=== PATIENT | female | born 1935 | race Caucasian/White ===

== ENCOUNTER 2016-10-19 04:12 | Inpatient (IN) | payer MEDICARE, OTHER ==
--- NOTE | ~2016-10-19 | CN ---
Consultation Report [facility] [address] [place]. [address] NAME: MARCOS PHILLIPS : 37 STATUS : ADM IN PAT#: [id number] AGE: 81 ADM/REG DATE : 10/19/16 MR#: [id number] REPORT SERV DATE: 10/20/16 DICTATED BY: ALLYSON NORMAN DATE: 10/20/16 REPORT STATUS : Draft TRANSCRIBED BY: MODL DATE: 10/20/16 NEPHROLOGY CONSULTATION DATE OF CONSULTATION: 10/20/2016 REQUESTING PHYSICIAN: Dr. Jaramillo. INDICATION FOR CONSULTATION: Acute on chronic kidney disease. HISTORY OF PRESENT ILLNESS: Ms. Phillips is a 81-year-old female seen for acute on chronic kidney disease following admission for shortness of breath and possible GI bleed. She is followed by Dr. Wright for stage IV CKD with baseline creatinine of 2.5 to 2.8. Her admission creatinine was 3.3 and has risen to 3.38. She is diuresing well. Breathing is improved. ALLERGIES: STADOL; SULFA; CODEINE; HYDROCODONE; AND WYGESIC. MEDICATIONS: Aspirin; Bumex; Coreg; vitamin D; ferrous sulfate; levothyroxine; and potassium. PAST MEDICAL HISTORY: 1. CKD stage 4, baseline creatinine 2.5 to 2.8. 2. Ischemic cardiomyopathy with an ejection fraction of 30%. 3. Coronary artery disease with remote PCI 2010. 4. Biventricular ICD. 5. Valvular heart disease with aortic insufficiency, mitral stenosis, tricuspid regurgitation. 6. Insulin-dependent diabetes mellitus. 7. Peripheral vascular disease. 8. Anemia. 9. Hypothyroidism. 10.Monoclonal gammopathy. 11.Osteoarthritis. PAST SURGICAL HISTORY: Hysterectomy; bilateral rotator cuff repair; neck surgery; cholecystectomy; Miky fundoplication; coronary artery bypass grafting; PCI; bilateral cataract implants; and ICD. SOCIAL HISTORY: The patient is . Lives with . No tobacco, alcohol, or illicit drug use. She has 3 children. FAMILY HISTORY: Both parents of myocardial infarction. Five sisters with heart attacks. No history of renal disease. Consultation Report [facility] [address] [place]. [address] NAME: MARCOS PHILLIPS : 37 STATUS : ADM IN PAT#: [id number] AGE: 81 ADM/REG DATE : 10/19/16 MR#: [id number] REPORT SERV DATE: 10/20/16 DICTATED BY: ALLYSON NORMAN DATE: 10/20/16 REPORT STATUS : Draft TRANSCRIBED BY: SEBASTIAN DATE: 10/20/16 REVIEW OF SYSTEMS: HEENT: No change in visual acuity. No epistaxis. No otic infection. No pharyngitis. PULMONARY: Noted shortness of breath. Cough is nonproductive. No hemoptysis. CARDIAC: Denies chest pain. No dizziness. GI: Some loose stools. Some intermittent nausea but no vomiting. MUSCULOSKELETAL: Back pain. INTEGUMENT: No rash. No itching. NEUROLOGIC: No lateralizing weakness or seizure activity. Remainder of 12-point review of systems is negative. PHYSICAL EXAMINATION: GENERAL: A pleasant white female, appropriately responsive. VITAL SIGNS: Blood pressure 99/54, temperature 97.8, respiratory rate 20, and pulse 75. HEENT: Eyes, no scleral icterus. Pupils equal and reactive to light. Extraocular movement intact. Nares patent. No lesions. Throat, no injection. Mucous membranes moist. NECK: No thyromegaly, masses, or bruits. CHEST/LUNGS: Late crackles posteriorly. No wheezing. CARDIAC: Regular rate and rhythm, a 1/6 systolic ejection murmur. No gallop. No rub. ABDOMEN: Supple. Normoactive bowel sounds. Nontender. No hepatosplenomegaly. BREASTS: Not performed. PELVIC: Not performed. RECTAL: Not performed. EXTREMITIES: No edema. No calf tenderness. DERMIS: No rash. No skin lesions. NEUROLOGIC: No lateralizing weakness. Cranial nerves intact. MUSCULOSKELETAL: No deformity. IMPRESSION: 1. Acute on chronic kidney disease, likely prerenal. No nephrotoxic exposure and currently no documentation of significant hypotension. 2. Ischemic cardiomyopathy EF 30%. 3. GI bleed. 4. Acute delirium resolving. 5. Pneumonia. 6. Sbx-ST-jprfqbbhr ME. 7. Osteoarthritis. 8. Monoclonal gammopathy. 9. Hypothyroidism. 10.Peripheral vascular disease. 11.Insulin-dependent diabetes mellitus. 12.CAD with remote coronary artery bypass grafting and PCI. 13.Valvular heart disease with mitral stenosis, aortic insufficiency, and tricuspid regurgitation. 14.Peripheral vascular disease. Consultation Report [facility] [address] [place]. [address] NAME: MARCOS PHILLIPS : 37 STATUS : ADM IN PAT#: [id number] AGE: 81 ADM/REG DATE : 10/19/16 MR#: [id number] REPORT SERV DATE: 10/20/16 DICTATED BY: ALLYSON NORMAN DATE: 10/20/16 REPORT STATUS : Draft TRANSCRIBED BY: SEBASTIAN DATE: 10/20/16 PLAN: 1. Labs. 2. Concur with current medications. 3. We will monitor. 4. Dialysis. CG/MINERVAL Allyson Norman M.D. / [id number] CC: Gillian Jaramillo MD
--- NOTE | ~2016-10-19 | IDS ---
Interim Discharge Summary [facility] [address] [place]. [address] NAME: MARCOS ESPINOZA : 37 STATUS : ADM IN [facility]#: [id number] AGE: 81 ADM/REG DATE : 10/19/16 MR#: [id number] REPORT SERV DATE: 10/24/16 DICTATED BY: TARA SNIDER IV DATE: 10/24/16 REPORT STATUS : Draft TRANSCRIBED BY: MODKevin DATE: 10/24/16 ADMISSION DATE: 10/19/2016 DISCHARGE DATE: Date of the transfer to the [place] ICU is 10/19/2016. Date of transfer to the floor is 10/24/2016. ADMITTING DIAGNOSES: 1. Hypoxemic respiratory failure requiring BiPAP. 2. Gastrointestinal bleed. 3. Possible community-acquired pneumonia. 4. Acute on chronic heart failure. 5. Ischemic cardiomyopathy, ejection fraction of 30%. 6. Coronary artery disease with a minimal bump in the troponin. 7. Acute on chronic kidney disease to baseline. 8. Wheezing markedly improved with bronchodilator medications and steroids. 9. Hypertension. 10.Diabetes mellitus with hyperglycemia with adjustments of her blood sugars. 11.Clinical obstructive sleep apnea for which she should obtain an outpatient sleep evaluation. 12.Chronic pain syndrome with current administration of low-dose narcotics. 13.Hypothyroidism, on replacement therapy. CONSULTANTS: 1. Gastroenterology, Dr. Urias, who continues to follow the patient. 2. Nephrology, who continues to follow the patient. 3. [facility], who continues to follow the patient. PROCEDURES: The patient had an abdominal CT scan on 10/20/2016 demonstrating some patchy right mid and right lower lobe infiltrates, which was interpreted as demonstrating pneumonia. There is no significant acute GI pathology, then the patient underwent mesenteric ultrasound on 10/22/2016 demonstrating no significant stenoses of the major mesenteric arteries. CURRENT MEDICATIONS: The patient is on Aldactone 25 mg daily, aspirin 325 mg daily, Brovana unit dose twice a day, Coreg 6.25 mg twice a day, prednisone 40 mg daily, DuoNeb q.4h while awake and q.4h as needed, iron 300 mg daily, Levemir twice a day, Lipitor 40 mg daily, level 2 insulin sliding scale, Protonix 40 mg IV twice a day, Pulmicort 1 mg twice a day, Reglan 5 mg q.6h, Rocephin 2 g daily, Synthroid 100 mcg daily, and vitamin D. HOSPITAL COURSE: The patient was admitted and transferred from [facility] on 10/19/2016 with hypoxemic respiratory failure. The patient presented there with two weeks of increasing shortness of breath with some symptoms of an upper respiratory infection. She was empirically treated for community-acquired pneumonia with ceftriaxone and azithromycin. She Interim Discharge Summary [facility] [id number] [place]. [address] NAME: MARCOS ESPINOZA : 37 STATUS : ADM IN PAT#: [id number] AGE: 81 ADM/REG DATE : 10/19/16 MR#: [id number] REPORT SERV DATE: 10/24/16 DICTATED BY: TARA SNIDER IV DATE: 10/24/16 REPORT STATUS : Draft TRANSCRIBED BY: SEBASTIAN DATE: 10/24/16 required intermittent BiPAP for 48 hours. She had a markedly elevated BNP for which Cardiology was consulted. Because she had a minimal bump in her troponin, she was started on a heparin drip. Soon after this, she had evidence for GI bleeding for which the heparin was discontinued. The patient was placed on Protonix drip and GI was consulted. She received 1 unit of packed red blood cells on 10/21/2016 with serial hemoglobins stable since then. She did have significant wheezing for which she transiently received Solu-Medrol; however, this was discontinued because of her elevated blood sugars. Prednisone was reordered yesterday with a dramatic improvement of her wheezing. She remains on bronchodilator medications. She transiently developed hypotension for which her cardiac medications were discontinued and now are being added back. She has had adjustments of her insulin coverage for her diabetes. She complains of chronic pain syndrome, and states she had been on Ultram despite the fact this is not on her home med list. She has been placed on low-dose oral narcotics to be taken as needed. She is currently on room air with a possible plan for EGD tomorrow. Nephrology was consulted because of a rise in her baseline creatinine, which is now back to her baseline in the 3 range. It was felt that she was stable for transfer to the floor. We will ask Hospitalist Service to assume primary care with the consultants to continue to follow. TREMAINE/MINERVAL Tara Snider IV, M.D. / [id number] CC: MD Froylan Begum M.D.
--- NOTE | ~2016-10-19 | EGD ---
EGD REPORT [facility] [address] [place] [address] NAME: MARCOS PHILLIPS : 37 STATUS : ADM IN PAT#: [id number] AGE: 81 ADM/REG DATE : 10/19/16 MR#: [id number] REPORT SERV DATE: 10/25/16 DICTATED BY: JONAS [place] DATE: 10/25/16 REPORT STATUS : Draft [facility]ANSCR[facility]ED [facility]: [facility] DATE: 10/25/16 End[facility] Center Patient Name: Marcos Phillips Date of : 1935 Attending MD: JONAS JACK[place] MD Procedure Date No Time: 10/25/2016 Procedure: Upper GI endoscopy Indications: Acute post hemorrhagic anemia, Gastro-esophageal reflux disease, Heme positive stool, Melena Referring MD: MELANIE CHENG Medicines: Propofol per Anesthesia Complications: No immediate complications. Procedure: Pre-Anesthesia Assessment: - ASA Grade Assessment: IV - A patient with severe systemic disease that is a constant threat to life. After obtaining informed consent, the endoscope was passed under direct vision. Throughout the procedure, the patient's blood pressure, pulse, and oxygen saturations were monitored continuously. The GIF [id number] was introduced through the mouth, and advanced to the third part of duodenum. The upper GI endoscopy was accomplished without difficulty. The patient tolerated the procedure well. Findings: Non-severe esophagitis with no bleeding was found in the entire esophagus. A small non-bleeding Emily-Tobar tear with no stigmata of recent bleeding was found. Evidence of a Miky fundoplication was found at the gastroesophageal junction. The wrap appeared intact. This was traversed. Diffuse moderate inflammation characterized by congestion (edema), erosions and erythema was found in the entire examined stomach. Biopsies were taken with a cold forceps for Helicobacter pylori testing. One non-bleeding cratered gastric ulcer with no stigmata of bleeding was found in the cardia. The lesion was 11 mm in largest dimension. Localized mild inflammation characterized by congestion (edema) and erythema was found in the duodenal bulb. The 2nd part of the duodenum and 3rd part of the duodenum were normal. Impression: - Non-severe reflux esophagitis. - Emily-Tobar tear. - A Miky fundoplication was found. The wrap appears intact. - Gastritis. Biopsied. EGD REPORT [address] [address] NAME: MARCOS PHILLIPS : 37 STATUS : ADM IN [facility]#: [id number] AGE: 81 ADM/REG DATE : 10/19/16 MR#: [id number] REPORT SERV DATE: 10/25/16 DICTATED BY: JONAS JACK[place] DATE: 10/25/16 REPORT STATUS : Draft TRANSCRIBED BY: [employer] DATE: 10/25/16 - Gastric ulcer with clean base. - Duodenitis. - Normal 2nd part of the duodenum and 3rd part of the duodenum. Recommendation: - Check hemoglobin q 6 hours for two days. - Continue present medications. - Use sucralfate suspension 1 gram PO QID. - take before each meal and at bedtime - Repeat the upper endoscopy in 3 months to check healing. - Return to previous diet. - Return patient to [facility] for ongoing care. Procedure Code(s): --- Professional --- 90929, Esophagogastroduodenoscopy, flexible, transoral; with biopsy, single or multiple Diagnosis Code(s): --- Professional --- K21.0, Gastro-esophageal reflux disease with esophagitis K22.6, Gastro-esophageal laceration-hemorrhage syndrome Z98.89, Other specified postprocedural states K29.70, Gastritis, unspecified, without bleeding K25.9, Gastric ulcer, unspecified as acute or chronic, without hemorrhage or perforation K29.80, Duodenitis without bleeding D62, Acute posthemorrhagic anemia R19.5, Other fecal abnormalities K92.1, Melena CPT copyright 2013 [employer]. All rights reserved. The codes documented in this report are preliminary and upon picker machine operator review may be revised to meet current compliance requirements. Jonas Jackson MD JONAS JACKSON MD 10/25/2016 1:02 PM This report has been signed electronically. Number of Addenda: 0 Note Initiated On: 10/25/2016 12:20 PM Scope Withdrawal Time 0 hours 0 minutes 0 seconds [address] [place] [address]
--- NOTE | ~2016-10-19 | DS ---
Discharge Summary [facility] [address] [place]. [address] NAME: MARCOS ESPINOZA : 37 STATUS : DIS IN PAT#: [id number] AGE: 81 ADM/REG DATE : 10/19/16 MR#: [id number] REPORT SERV DATE: 10/30/16 DICTATED BY: SUNI CONDE DATE: 10/29/16 REPORT STATUS : Draft TRANSCRIBED BY: MODL DATE: 10/29/16 ADMISSION DATE: 10/19/2016 DISCHARGE DATE: 10/29/2016 REASON FOR ADMISSION: Acute on chronic systolic heart failure exacerbation and concern for pneumonia. HISTORY OF PRESENT ILLNESS: Please refer to Dr. Wheatley's H and P dated 10/19/2016. In brief, the patient was admitted to the [facility] Service for acute on chronic systolic heart failure exacerbation. HOSPITAL COURSE: From admission to 10/24/2016, please refer to Dr. Janusz Snider's interim summary. In brief, the patient was transferred [facility] ICU on 10/19/2016 and then transferred to the floor on 10/24/2016. She was diagnosed with acute hypoxic respiratory failure, requiring BiPAP, then developing a non-ST elevation IL, started on a heparin drip, and then concerning for a GI bleed after heparin drip was initiated. She also developed acute on chronic kidney disease and significant wheezing. She was stabilized. [facility] had been following the patient for her non-ST elevation IL and Nephrology followed the patient throughout the hospitalization. Dr. Urias had performed an EGD in the intensive care unit, which showed nonsevere reflux esophagitis, a Emily-Tobar tear, a Miky fundoplication was found, and gastritis along with a gastric ulcer with clean base and duodenitis. She was transfused one unit of blood after she was stabilized, she was then transferred to the floor on 10/24/2016. I assumed care of this patient on 10/25/[address] Snider. At which point, we were monitoring her creatinine and it had been slowly rising and finally stabilized at about 2.96. Nephrology had signed off. She was weaned off oxygen. She was ambulating, requesting to go home. Repeat chest x-ray showed no acute findings on the day prior to discharge. Her hemoglobin had been stable. She reached maximal hospitalization and will be discharged home in a stable condition. DISCHARGE DIAGNOSES: 1. Acute hypoxic respiratory failure, requiring BiPAP, now resolved; acute on chronic systolic heart failure exacerbation, now resolved; gastrointestinal bleeding was likely secondary to heparin drip, now resolved; duodenitis, Emily-Tobar tear, reflux esophagitis; possible community-acquired pneumonia; ischemic cardiomyopathy with an ejection fraction of 30%; coronary artery disease, non-ST elevation myocardial infarction; acute on chronic kidney disease, stage IV, now at baseline; diabetes type 2; clinical obstructive sleep apnea; chronic pain syndrome, dependent on narcotics; hypothyroidism. CONSULTANTS: Esau Urias M.D. of GI Medicine, Nephrology, and [facility]. PROCEDURES: CT scan of the abdomen, EGD, mesenteric ultrasound. DISCHARGE MEDICATIONS: Include aspirin 81 mg once a day, Lipitor 40 mg at bedtime, Bumex 2 mg twice a day, Coreg 12.5 mg twice a day, vitamin D 2000 units, iron sulfate 325 mg daily, levothyroxine 100 mcg daily, Protonix 40 mg once a day, Aldactone 25 mg daily, nitroglycerin Discharge Summary [address] [address] NAME: MARCOS ESPINOZA : 37 STATUS : DIS IN PAT#: [id number] AGE: 81 ADM/REG DATE : 10/19/16 MR#: [id number] REPORT SERV DATE: 10/30/16 DICTATED BY: SUNI CONDE DATE: 10/29/16 REPORT STATUS : Draft TRANSCRIBED BY: MODL DATE: 10/29/16 p.r.n., NovoLog 70/30 mix 35 units in the morning and 25 in the evening. The patient will have home health arranged and she will follow up with Nephrology and Dr. Urias. This is Dr. Suni Conde spending over 30 minutes discharge planning and coordination of care on this patient. MARY/SEBASTIAN Suni Conde MD / [id number] CC: MD Froylan Begum M.D. [facility] Esau Urias M.D.
--- NOTE | ~2016-10-19 | CN ---
Consultation Report [address] [place]. [address] NAME: MARCOS PHILLIPS : 37 STATUS : ADM IN PAT#: [id number] AGE: 81 ADM/REG DATE : 10/19/16 MR#: [id number] REPORT SERV DATE: 10/19/16 DICTATED BY: MAHIN THOMAS DATE: 10/19/16 REPORT STATUS : Draft TRANSCRIBED BY: MODKevin DATE: 10/19/16 CARDIOLOGY CONSULTATION DATE OF CONSULTATION: [facility] PHYSICIAN: Deacon Diez M.D. REASON FOR CONSULTATION: Dyspnea, elevated BNP, and chest pain with elevated troponin. HISTORY OF PRESENT ILLNESS: Ms. Phillips is a 81-year-old woman with history of coronary artery disease with chronic systolic dysfunction and chronic heart failure as well as chronic kidney disease. She presented to the hospital with increasing dyspnea and chest discomfort. She had a recent jaw infection and upper respiratory tract symptoms. She has had dyspnea for two weeks with fever. She went to the emergency room at [facility] and due to them having no ICU beds, was admitted with question possible pneumonia with left lower lobe consolidation. She does report some chest discomfort. Has some mild increased swelling. She has had no real exertional-type chest pain. REVIEW OF SYSTEMS: The review of systems is as per the history of present illness. All other systems are negative. PAST MEDICAL HISTORY: 1. Coronary artery disease with previous bypass surgery and percutaneous intervention in March of 2011. 2. History of congestive heart failure. 3. Ischemic cardiomyopathy, LVEF 30% on echocardiogram 12/2015. 4. Diabetes. 5. Left bundle-branch block. 6. Chronic kidney disease. 7. History of LINER ROLL CHANGER defibrillator. 8. Anemia. FAMILY HISTORY: Noncontributory. SOCIAL HISTORY: The patient is . She has three children. No tobacco or alcohol. ALLERGIES: PROPOXYPHENE, STADOL, SULFA, CODEINE, HYDROCODONE. HOME MEDICINES: 1. Aspirin 81 daily. 2. Bumex 1 daily for two in the morning and one in the evening. 3. Carvedilol 12.5 p.o. b.i.d. 4. Vitamin D. Consultation Report [address] [place]. [address] NAME: MARCOS PHILLIPS : 37 STATUS : ADM IN PAT#: [id number] AGE: 81 ADM/REG DATE : 10/19/16 MR#: [id number] REPORT SERV DATE: 10/19/16 DICTATED BY: MAHIN THOMAS DATE: 10/19/16 REPORT STATUS : Draft TRANSCRIBED BY: SEBASTIAN DATE: 10/19/16 5. Ferrous sulfate. 6. Levothyroxine. 7. Potassium. PHYSICAL EXAMINATION: VITAL SIGNS: Heart rate 60, blood pressure 153/69. GENERAL: The patient is a pleasant, white female, BiPAP in place with mild expiratory effort. HEENT: Conjunctivae are anicteric, no xanthelasma, lips without cyanosis. NECK: Supple. Jugular venous pressure is mildly elevated. CARDIOVASCULAR: Regular rate and rhythm. Normal S1, S2. A 1 to 2/6 systolic murmur. LUNGS: Decreased breath sounds with some rhonchi and crackles, left greater than right. ABDOMEN: Soft, nontender, nondistended, with normal bowel sounds. No hepatomegaly. EXTREMITIES: Trace to mild edema. NEURO/PSYCH: Alert and oriented to person, place and time. No obvious neurologic deficits. Mood and affect normal. DATA: EKG in the emergency room shows sinus rhythm with no acute ST-segment changes. Chest x-ray shows some pulmonary edema with left lower lobe consolidation. Creatinine is 3.3. BNP level is 1357. Troponin 0.6. Procalcitonin 0.6. Albumin 2.6. IMPRESSION: 1. Acute on chronic systolic heart failure. 2. Possible pneumonia. 3. Chest pain, question angina. 4. History of coronary artery disease with previous CABG and PCI in March 2011. 5. Diabetes. 6. Ischemic cardiomyopathy with previous ejection fraction of 30% in December of 2015. 7. History of left bundle-branch block. 8. Chronic kidney disease stage 4. RECOMMENDATIONS: Ms. Phillips presents with dyspnea which is likely multifactorial, may be related to LV dysfunction, pneumonia, or worsening renal failure. I agree with diuresis. Her troponins were elevated. She has no acute changes on her EKG. We will follow some serial enzymes, but I suspect mostly this is demand related rather than acute coronary syndrome. Thank you for this consultation. We will follow through her on next day or two of her clinical course with further recommendations. MAGUI/SEBASTIAN Mahin Consultation Report [facility] [address] [place]. [address] NAME: MARCOS PHILLIPS : 37 STATUS : ADM IN PAT#: [id number] AGE: 81 ADM/REG DATE : 10/19/16 MR#: [id number] REPORT SERV DATE: 10/19/16 DICTATED BY: MAHIN THOMAS DATE: 10/19/16 REPORT STATUS : Draft TRANSCRIBED BY: MODL DATE: 10/19/16 Juan Thomas, Ph.D, F.A.C.C. / [id number] CC: Gillian Jaramillo MD
[~2016-10-19 04:12] MED LIST: *UNABLE3; ALTACE10 MG PO; APRES25 PO; ASA5GR PO; ASAB PO; BUM1 PO; BUM2 PO; BUMEX PO; BYETTA; BYETTA10 SC; CEFT2 PO; CO Q-10100 MG PO; COREG12 PO; COREG6 PO; DEMA100 PO; DSS PO; FERROUS SULF325 M1 PO; FISH OIL300 MG PO; FISH-EPA1000 MG PO; FLONASE NAS; FLORASTOR250 MG PO; GLUCPH PO; HUMALOG SC; HUMALOGMIX; HUMALOGMIX SC; HUMALOGMIX SQ; HUMAMIXPEN SC; IRON325 MG PO; KDUR20 PO; KLOR-CON M2020 MEQ PO; KLOR-CON20 MEQ PO; L40 PO; L80 PO; LEVAQUIN5T PO; LEVEMFLXPN SC; LEVOTHYROXIN100 MCG PO; LEVOTHYROXIN75 MCG PO; MAGNESIUM PO; MAGOX4 PO; MEGARED PO; MELA3 PO; MIRAPEX5 PO; MSIMMR15; MULTIPLE VIT PO; NASONEX NAS; NITROII20C TOP; NITROII30C TOP; NORV5 PO; NOVOLOG SQ; NOVOLOGMIX SC; NOVOPENMIX SC; OXYCOD PO; PEP20 PO; PERCOCET1 TA2 PO; PLAVIX PO; PRAVAC PO; PRILO PO; PRILOSEC40 MG PO; PROTONIX PO; REG PO; REGLAN PO; SPIRO50 PO; SUCR PO; SYN.025B PO; SYN.05 PO; SYN.15 PO; SYN075 PO; SYN1 PO; TRILIPIX135 MG PO; ULTRAM50 PO; VITAMIN D1000 UNI1 PO; VITAMIN D2000 UNIT PO; VITAMIN D31000 UNIT PO; VOLTAREN1 % TOP; Z5 OR; Z5 PO; ZOCOR10 PO
[2016-10-19 05:32] LABS: BE (BASE EXCESS) -6.3 MEQ/L (0 +/- 2.5); CARBOXYHEMOGLOBIN 0.3 % (0-3); HCO3 (ACTUAL BICARBONATE) 18.4 MEQ/L (23-27); HEMOBLOGIN CONTENT 11.2 G/DL (12-16); INSTRUMENT SERIAL # 35151; METHEMOGLOBIN 0.6 % (0-3); O2 CONTENT 15.4 VOL% (18-24); OPERATOR ID 13861; PCO2 (CO2 TENSION) 34 MMHG (35-45); PO2 (O2 TENSION) 109 MMHG (79-93); SAMPLE Arterial; pH 7.35 (7.37-7.43)
[2016-10-19 06:16] LABS: HEMATOCRIT 30.5 % (36.0-48.0); HEMOGLOBIN 10.1 g/dL (12.0-16.0); MEAN CORPUS HGB CONC 33.1 g/dL (32.0-36.0); MEAN CORPUSCULAR VOLUME 99.7 fL (80-100); MEAN PLATELET VOLUME 9.3 fL (9.2-13.0); PLATELET COUNT 177 10/3/uL (150-400); RBC DISTRIBUTION WIDTH 13.6 % (12.0-16.0); RED CELL COUNT 3.06 10/6/uL (4.0-5.6); WHITE BLOOD CELLS 6.4 10/3/uL (4.5-10.5)
[2016-10-19 06:22] LABS: MANUAL DIFF YES %
[2016-10-19 06:41] LABS: A/G RATIO 0.5 (0.7-1.9); ALBUMIN 2.6 G/DL (3.5-5.0); ALKALINE PHOSPHATASE 90 U/L (45-117); BUN (BLOOD UREA NITROGEN) 44 MG/DL (6-23); CALCIUM, SERUM 8.2 MG/DL (8.5-10.4); CHLORIDE, SERUM 100 MMOL/L (96-112); CO2 (CARBON DIOXIDE) 20 MMOL/L (24-34); FREE T4 1.25 NG/DL (0.76-1.46); GFR AFRICAN AMERICAN 15 ML/MIN (>=60); GFR NON AFRICAN AMERICAN 13 ML/MIN (>=60); GLOBULIN 5.2 G/DL (2.5-4.1); POTASSIUM, SERUM 3.4 MMOL/L (3.5-5.3); SGOT(AST) 18 U/L (5-40); SGPT(ALT) 11 U/L (5-65); SODIUM, SERUM 135 MMOL/L (135-148); TOTAL BILIRUBIN 0.4 MG/DL (0-1.2); TOTAL PROTEIN 7.8 G/DL (6.0-8.5); ULTRASENSITIVE TSH 0.933 MCIU/ML (0.358-3.740)
[2016-10-19 06:43] LABS: GLUCOSE, SERUM 403 MG/DL (60-99); TROPONIN I 0.62 NG/ML (<0.05)
[2016-10-19 07:10] LABS: BAND NEUTROPHILS 3 %; LYMPHOCYTES 10 %; LYMPHOCYTES ABSOLUTE (CALC) 0.64 10/3/uL (0.67-4.30); MONOCYTES 1 %; MONOCYTES ABSOLUTE (CALC) 0.06 10/3/uL (0.21-1.20); PLATELET ESTIMATE ADQ (ADEQUATE); SEGMENTED NEUTROPHIL (0) 86 %; TOTAL NUCLEATED CELLS 100
[2016-10-19 07:11] LABS: RBC MORPHOLOGY NORM (NORMAL)
[2016-10-19 07:21] LABS: PROCALCITONIN 0.66 ng/mL (<0.5)
[2016-10-19 07:52] LABS: INFLUENZA A SCREEN NEGATIVE (NEGATIVE); INFLUENZA B SCREEN NEGATIVE (NEGATIVE)
[2016-10-19 08:09] LABS: GLYCOHEMOGLOBIN (HbA1c) 7.5 % (4.7-6.1)
[2016-10-19 08:30] LABS: B NATRIURETIC PEPTIDE (BNP) 1357.5 PG/ML (< 100.0)
[2016-10-19 12:35] LABS: CK-MB 2.9 NG/ML; CPK 118 U/L (0-200)
[2016-10-19 12:36] LABS: TROPONIN I 0.49 NG/ML (<0.05)
[2016-10-19 12:38] LABS: CK-MB 2.1 NG/ML; CPK 128 U/L (0-200)
[2016-10-19] MEDS ORDERED: NOVOLOGMIX SC ×2 (13:58)
[2016-10-19] MEDS ORDERED: NITROII30C TOP (13:58)
[2016-10-19 14:24] LABS: ASCORBIC ACID (UR NOT ORDER) NEG (NEG); BILIRUBIN, URINE NEGATIVE (NEG); KETONE, URINE NEGATIVE (NEG); LEUKOCYTE ESTERASE(NOT OR NEG (NEG); WBC (NOT ORDERED) (RFLEX) 6 (0-5)
[2016-10-19 17:20] LABS: CPK 107 U/L (0-200)
[2016-10-19 17:21] LABS: TROPONIN I 0.46 NG/ML (<0.05)
[2016-10-20 00:25] LABS: CALCIUM, SERUM 7.9 MG/DL (8.5-10.4); CHLORIDE, SERUM 102 MMOL/L (96-112); CO2 (CARBON DIOXIDE) 23 MMOL/L (24-34); CREATININE 3.38 MG/DL (0.55-1.02); GFR AFRICAN AMERICAN 14 ML/MIN (>=60); GFR NON AFRICAN AMERICAN 12 ML/MIN (>=60); GLUCOSE, SERUM 332 MG/DL (60-99); PHOSPHORUS, SERUM 3.4 MG/DL (2.5-4.5); POTASSIUM, SERUM 3.5 MMOL/L (3.5-5.3); SODIUM, SERUM 138 MMOL/L (135-148)
[2016-10-20 00:31] LABS: BUN (BLOOD UREA NITROGEN) 70 MG/DL (6-23); CK-MB 3.6 NG/ML; CPK 80 U/L (0-200); TROPONIN I 0.47 NG/ML (<0.05)
[2016-10-20 08:07] LABS: BASOPHILS 0.1 %; BASOPHILS ABSOLUTE 0.01 10/3/uL (0.0-0.16); EOSINOPHILS 0 %; HEMOGLOBIN 8.4 g/dL (12.0-16.0); IMMATURE GRANULOCYTES 0.6 %; IMMATURE GRANULOCYTES ABSOLUTE 0.06 10/3/uL (0.0-0.11); LYMPHOCYTES 11.2 %; LYMPHOCYTES ABSOLUTE 1.11 10/3/uL (0.67-4.30); MEAN CORPUSCULAR HEMOGLOB 33.9 pg (26.0-34.0); MEAN CORPUSCULAR VOLUME 99.6 fL (80-100); MEAN PLATELET VOLUME 9.6 fL (9.2-13.0); MONOCYTES 5.2 %; MONOCYTES ABSOLUTE 0.51 10/3/uL (0.21-1.20); NEUTROPHILS 82.9 %; NEUTROPHILS ABSOLUTE 8.21 10/3/uL (2.02-8.40); PLATELET COUNT 189 10/3/uL (150-400); RBC DISTRIBUTION WIDTH 13.3 % (12.0-16.0); RED CELL COUNT 2.48 10/6/uL (4.0-5.6)
[2016-10-20 08:11] LABS: HEMATOCRIT 24.7 % (36.0-48.0); MANUAL DIFF NO %; WHITE BLOOD CELLS 9.9 10/3/uL (4.5-10.5)
[2016-10-20 08:25] LABS: CALCIUM, SERUM 7.7 MG/DL (8.5-10.4); CHLORIDE, SERUM 106 MMOL/L (96-112); CO2 (CARBON DIOXIDE) 20 MMOL/L (24-34); CPK 67 U/L (0-200); GFR AFRICAN AMERICAN 15 ML/MIN (>=60); GFR NON AFRICAN AMERICAN 13 ML/MIN (>=60); PHOSPHORUS, SERUM 3.7 MG/DL (2.5-4.5); SODIUM, SERUM 138 MMOL/L (135-148)
[2016-10-20 08:27] LABS: BUN (BLOOD UREA NITROGEN) 90 MG/DL (6-23); CK-MB 3.8 NG/ML; GLUCOSE, SERUM 398 MG/DL (60-99); POTASSIUM, SERUM 4.5 MMOL/L (3.5-5.3); TROPONIN I 0.37 NG/ML (<0.05)
[2016-10-20 10:42] LABS: BE (BASE EXCESS) -7.4 MEQ/L (0 +/- 2.5); CARBOXYHEMOGLOBIN 0.3 % (0-3); HCO3 (ACTUAL BICARBONATE) 17.5 MEQ/L (23-27); INSTRUMENT SERIAL # 35151; METHEMOGLOBIN 0.8 % (0-3); O2 CONTENT 12.5 VOL% (18-24); PCO2 (CO2 TENSION) 33 MMHG (35-45); PO2 (O2 TENSION) 121 MMHG (79-93); SAMPLE Arterial; pH 7.34 (7.37-7.43)
[2016-10-20 11:23] LABS: CPK 75 U/L (0-200)
[2016-10-20 11:25] LABS: CK-MB 4.9 NG/ML; TROPONIN I 0.37 NG/ML (<0.05)
[2016-10-20 12:56] LABS: HEMATOCRIT 24.7 % (36.0-48.0); HEMOGLOBIN 8.5 g/dL (12.0-16.0)
[2016-10-20 17:29] LABS: CK-MB 5.3 NG/ML
[2016-10-20 17:30] LABS: CKMB INDEX (NOT ORD) 6.6; TROPONIN I 0.36 NG/ML (<0.05)
[2016-10-20 23:17] LABS: HEMOGLOBIN 7.3 g/dL (12.0-16.0)
[2016-10-20 23:20] LABS: HEMATOCRIT 21.7 % (36.0-48.0)
[2016-10-20 23:42] LABS: INTERNATIONAL NORMAL RATI 1.3 UNITS (-); PROTIME (NOT ORD) 15.7 SEC (12.0-14.5)
[2016-10-21 08:40] LABS: MEAN CORPUSCULAR HEMOGLOB 32.8 pg (26.0-34.0); MEAN CORPUSCULAR VOLUME 96.7 fL (80-100); MEAN PLATELET VOLUME 9.8 fL (9.2-13.0); PLATELET COUNT 181 10/3/uL (150-400); RBC DISTRIBUTION WIDTH 14.5 % (12.0-16.0); RED CELL COUNT 2.74 10/6/uL (4.0-5.6); WHITE BLOOD CELLS 13.4 10/3/uL (4.5-10.5)
[2016-10-21 08:41] LABS: HEMATOCRIT 26.5 % (36.0-48.0); MANUAL DIFF YES %
[2016-10-21 08:50] LABS: CHLORIDE, SERUM 107 MMOL/L (96-112); CO2 (CARBON DIOXIDE) 19 MMOL/L (24-34); CREATININE 3.43 MG/DL (0.55-1.02); GFR AFRICAN AMERICAN 14 ML/MIN (>=60); GFR NON AFRICAN AMERICAN 12 ML/MIN (>=60); POTASSIUM, SERUM 3.8 MMOL/L (3.5-5.3); SODIUM, SERUM 143 MMOL/L (135-148)
[2016-10-21 08:51] LABS: BUN (BLOOD UREA NITROGEN) 114 MG/DL (6-23); GLUCOSE, SERUM 236 MG/DL (60-99)
[2016-10-21 09:07] LABS: BAND NEUTROPHILS 4 %; IMMATURE GRANS ABSOLUTE (CALC) 0.13 10/3/uL (0.0-0.11); LYMPHOCYTES 6 %; METAMYELOCYTES 1 %; MONOCYTES 2 %; MONOCYTES ABSOLUTE (CALC) 0.27 10/3/uL (0.21-1.20); NEUTROPHILS ABSOLUTE (CALC) 12.19 10/3/uL (2.02-8.40); PLATELET ESTIMATE ADQ (ADEQUATE); RBC MORPHOLOGY NORM (NORMAL); SEGMENTED NEUTROPHIL (0) 87 %; TOTAL NUCLEATED CELLS 100
[2016-10-21 09:56] LABS: CREATININE (RANDOM URINE) 15.9 MG/DL; CREATININE, URINE 15.9 MG/DL; MICROALBUMIN, RANDOM URINE 1.2 MG/DL
[2016-10-21 13:02] LABS: HEMATOCRIT 25.3 % (36.0-48.0); HEMOGLOBIN 8.4 g/dL (12.0-16.0)
[2016-10-21 21:01] LABS: HEMOGLOBIN 8.3 g/dL (12.0-16.0)
[2016-10-22 03:02] LABS: HEMOGLOBIN 7.8 g/dL (12.0-16.0); MEAN CORPUS HGB CONC 34.8 g/dL (32.0-36.0); MEAN CORPUSCULAR HEMOGLOB 33.5 pg (26.0-34.0); MEAN CORPUSCULAR VOLUME 96.1 fL (80-100); MEAN PLATELET VOLUME 9.5 fL (9.2-13.0); PLATELET COUNT 190 10/3/uL (150-400); RBC DISTRIBUTION WIDTH 14.8 % (12.0-16.0); RED CELL COUNT 2.33 10/6/uL (4.0-5.6); WHITE BLOOD CELLS 11.6 10/3/uL (4.5-10.5)
[2016-10-22 03:06] LABS: ALBUMIN 2.3 G/DL (3.5-5.0); BUN (BLOOD UREA NITROGEN) 116 MG/DL (6-23); CALCIUM, SERUM 7.6 MG/DL (8.5-10.4); CHLORIDE, SERUM 106 MMOL/L (96-112); CO2 (CARBON DIOXIDE) 23 MMOL/L (24-34); CREATININE 3.57 MG/DL (0.55-1.02); GFR AFRICAN AMERICAN 13 ML/MIN (>=60); GFR NON AFRICAN AMERICAN 11 ML/MIN (>=60); GLUCOSE, SERUM 137 MG/DL (60-99); INTERNATIONAL NORMAL RATI 1.3 UNITS (-); PARTIAL THROMBO TIME 25.6 SEC (22.5-37.2); PHOSPHORUS, SERUM 4.2 MG/DL (2.5-4.5); POTASSIUM, SERUM 3.3 MMOL/L (3.5-5.3); PROTIME (NOT ORD) 15.7 SEC (12.0-14.5); SODIUM, SERUM 144 MMOL/L (135-148)
[2016-10-22 03:07] LABS: HEMATOCRIT 22.4 % (36.0-48.0); MANUAL DIFF YES %
[2016-10-22 04:26] LABS: ATYPICAL LYMPH FEW (3-5%) (0-5%); BAND NEUTROPHILS 3 %; LYMPHOCYTES 11 %; LYMPHOCYTES ABSOLUTE (CALC) 1.28 10/3/uL (0.67-4.30); MONOCYTES 3 %; MONOCYTES ABSOLUTE (CALC) 0.35 10/3/uL (0.21-1.20); NEUTROPHILS ABSOLUTE (CALC) 9.98 10/3/uL (2.02-8.40); RBC MORPHOLOGY NORM (NORMAL); SEGMENTED NEUTROPHIL (0) 83 %; TOTAL NUCLEATED CELLS 100
[2016-10-22 09:07] LABS: HEMATOCRIT 23.4 % (36.0-48.0); HEMOGLOBIN 8.1 g/dL (12.0-16.0)
[2016-10-22 14:13] LABS: HEMOGLOBIN 7.8 g/dL (12.0-16.0)
[2016-10-22 17:47] LABS: PROCALCITONIN 0.59 ng/mL (<0.5)
[2016-10-22 20:26] LABS: HEMATOCRIT 25.2 % (36.0-48.0); HEMOGLOBIN 8.6 g/dL (12.0-16.0)
[2016-10-22 20:36] LABS: CALCIUM, SERUM 7.8 MG/DL (8.5-10.4); CHLORIDE, SERUM 112 MMOL/L (96-112); CO2 (CARBON DIOXIDE) 23 MMOL/L (24-34); CREATININE 3.43 MG/DL (0.55-1.02); GFR AFRICAN AMERICAN 14 ML/MIN (>=60); GFR NON AFRICAN AMERICAN 12 ML/MIN (>=60); GLUCOSE, SERUM 129 MG/DL (60-99); POTASSIUM, SERUM 3.3 MMOL/L (3.5-5.3); SODIUM, SERUM 146 MMOL/L (135-148)
[2016-10-22 20:38] LABS: BUN (BLOOD UREA NITROGEN) 108 MG/DL (6-23)
[2016-10-23 04:59] LABS: BASOPHILS 0.2 %; BASOPHILS ABSOLUTE 0.02 10/3/uL (0.0-0.16); EOSINOPHILS 1.2 %; EOSINOPHILS ABSOLUTE 0.14 10/3/uL (0.0-0.53); HEMATOCRIT 26.2 % (36.0-48.0); HEMOGLOBIN 8.8 g/dL (12.0-16.0); IMMATURE GRANULOCYTES 1.7 %; IMMATURE GRANULOCYTES ABSOLUTE 0.19 10/3/uL (0.0-0.11); LYMPHOCYTES 24.1 %; LYMPHOCYTES ABSOLUTE 2.77 10/3/uL (0.67-4.30); MEAN CORPUS HGB CONC 33.6 g/dL (32.0-36.0); MEAN CORPUSCULAR HEMOGLOB 32.7 pg (26.0-34.0); MEAN CORPUSCULAR VOLUME 97.4 fL (80-100); MEAN PLATELET VOLUME 9.3 fL (9.2-13.0); MONOCYTES 6.8 %; MONOCYTES ABSOLUTE 0.78 10/3/uL (0.21-1.20); NEUTROPHILS ABSOLUTE 7.57 10/3/uL (2.02-8.40); PLATELET COUNT 211 10/3/uL (150-400); RED CELL COUNT 2.69 10/6/uL (4.0-5.6); WHITE BLOOD CELLS 11.5 10/3/uL (4.5-10.5)
[2016-10-23 05:07] LABS: MANUAL DIFF NO %
[2016-10-23 05:26] LABS: ALBUMIN 2.5 G/DL (3.5-5.0); CHLORIDE, SERUM 112 MMOL/L (96-112); CO2 (CARBON DIOXIDE) 22 MMOL/L (24-34); CREATININE 3.58 MG/DL (0.55-1.02); GFR AFRICAN AMERICAN 13 ML/MIN (>=60); GFR NON AFRICAN AMERICAN 11 ML/MIN (>=60); GLUCOSE, SERUM 106 MG/DL (60-99); PHOSPHORUS, SERUM 3.9 MG/DL (2.5-4.5); POTASSIUM, SERUM 3.2 MMOL/L (3.5-5.3); SGOT(AST) 19 U/L (5-40); SGPT(ALT) 10 U/L (5-65); SODIUM, SERUM 147 MMOL/L (135-148); TOTAL BILIRUBIN 0.5 MG/DL (0-1.2); TOTAL PROTEIN 6.6 G/DL (6.0-8.5)
[2016-10-23 05:28] LABS: A/G RATIO 0.6 (0.7-1.9); ALKALINE PHOSPHATASE 67 U/L (45-117); BUN (BLOOD UREA NITROGEN) 103 MG/DL (6-23); GLOBULIN 4.1 G/DL (2.5-4.1)
[2016-10-23 17:07] LABS: HEMATOCRIT 27.1 % (36.0-48.0); HEMOGLOBIN 9.2 g/dL (12.0-16.0)
[2016-10-23 17:22] LABS: BUN (BLOOD UREA NITROGEN) 92 MG/DL (6-23); CALCIUM, SERUM 8.4 MG/DL (8.5-10.4); CHLORIDE, SERUM 113 MMOL/L (96-112); CO2 (CARBON DIOXIDE) 21 MMOL/L (24-34); CREATININE 3.35 MG/DL (0.55-1.02); GFR AFRICAN AMERICAN 14 ML/MIN (>=60); GFR NON AFRICAN AMERICAN 12 ML/MIN (>=60); GLUCOSE, SERUM 190 MG/DL (60-99); SODIUM, SERUM 144 MMOL/L (135-148)
[2016-10-24 05:35] LABS: HEMATOCRIT 26.1 % (36.0-48.0); HEMOGLOBIN 8.6 g/dL (12.0-16.0); MEAN CORPUSCULAR HEMOGLOB 32.6 pg (26.0-34.0); MEAN CORPUSCULAR VOLUME 98.9 fL (80-100); MEAN PLATELET VOLUME 9.5 fL (9.2-13.0); PLATELET COUNT 199 10/3/uL (150-400); RBC DISTRIBUTION WIDTH 14.7 % (12.0-16.0); RED CELL COUNT 2.64 10/6/uL (4.0-5.6); WHITE BLOOD CELLS 10.7 10/3/uL (4.5-10.5)
[2016-10-24 05:36] LABS: MANUAL DIFF YES %
[2016-10-24 05:55] LABS: BAND NEUTROPHILS 3 %; LYMPHOCYTES 9 %; LYMPHOCYTES ABSOLUTE (CALC) 0.96 10/3/uL (0.67-4.30); MONOCYTES 4 %; MONOCYTES ABSOLUTE (CALC) 0.43 10/3/uL (0.21-1.20); NEUTROPHILS ABSOLUTE (CALC) 9.31 10/3/uL (2.02-8.40); PLATELET ESTIMATE ADQ (ADEQUATE); RBC MORPHOLOGY NORM (NORMAL); SEGMENTED NEUTROPHIL (0) 84 %; TOTAL NUCLEATED CELLS 100
[2016-10-24 05:57] LABS: CALCIUM, SERUM 8.4 MG/DL (8.5-10.4); CHLORIDE, SERUM 114 MMOL/L (96-112); CO2 (CARBON DIOXIDE) 19 MMOL/L (24-34); CREATININE 2.99 MG/DL (0.55-1.02); GFR AFRICAN AMERICAN 17 ML/MIN (>=60); GFR NON AFRICAN AMERICAN 14 ML/MIN (>=60); GLUCOSE, SERUM 201 MG/DL (60-99); POTASSIUM, SERUM 4.1 MMOL/L (3.5-5.3); SODIUM, SERUM 145 MMOL/L (135-148)
[2016-10-24 05:59] LABS: BUN (BLOOD UREA NITROGEN) 83 MG/DL (6-23); PHOSPHORUS, SERUM 2.9 MG/DL (2.5-4.5)
[2016-10-24 16:40] LABS: HEMATOCRIT 26.1 % (36.0-48.0); HEMOGLOBIN 8.8 g/dL (12.0-16.0)
[2016-10-25 04:51] LABS: HEMATOCRIT 25.4 % (36.0-48.0); HEMOGLOBIN 8.6 g/dL (12.0-16.0); MEAN CORPUS HGB CONC 33.9 g/dL (32.0-36.0); MEAN CORPUSCULAR HEMOGLOB 33.6 pg (26.0-34.0); MEAN CORPUSCULAR VOLUME 99.2 fL (80-100); MEAN PLATELET VOLUME 9.2 fL (9.2-13.0); PLATELET COUNT 224 10/3/uL (150-400); RBC DISTRIBUTION WIDTH 14.9 % (12.0-16.0); RED CELL COUNT 2.56 10/6/uL (4.0-5.6); WHITE BLOOD CELLS 14.1 10/3/uL (4.5-10.5)
[2016-10-25 04:53] LABS: MANUAL DIFF YES %
[2016-10-25 05:04] LABS: ALBUMIN 2.8 G/DL (3.5-5.0); CALCIUM, SERUM 8.7 MG/DL (8.5-10.4); CHLORIDE, SERUM 114 MMOL/L (96-112); CO2 (CARBON DIOXIDE) 19 MMOL/L (24-34); GFR AFRICAN AMERICAN 18 ML/MIN (>=60); GFR NON AFRICAN AMERICAN 15 ML/MIN (>=60); PHOSPHORUS, SERUM 2.6 MG/DL (2.5-4.5); POTASSIUM, SERUM 3.7 MMOL/L (3.5-5.3); SODIUM, SERUM 144 MMOL/L (135-148)
[2016-10-25 05:05] LABS: BUN (BLOOD UREA NITROGEN) 68 MG/DL (6-23); GLUCOSE, SERUM 149 MG/DL (60-99)
[2016-10-25 05:46] LABS: PROCALCITONIN 0.31 ng/mL (<0.5)
[2016-10-25 06:33] LABS: BAND NEUTROPHILS 2 %; IMMATURE GRANS ABSOLUTE (CALC) 0.14 10/3/uL (0.0-0.11); LYMPHOCYTES 17 %; METAMYELOCYTES 1 %; MONOCYTES 2 %; MONOCYTES ABSOLUTE (CALC) 0.28 10/3/uL (0.21-1.20); NEUTROPHILS ABSOLUTE (CALC) 11.28 10/3/uL (2.02-8.40); PLATELET ESTIMATE ADQ (ADEQUATE); RBC MORPHOLOGY NORM (NORMAL); SEGMENTED NEUTROPHIL (0) 78 %; TOTAL NUCLEATED CELLS 100
[2016-10-25 16:09] LABS: HEMATOCRIT 25.3 % (36.0-48.0); HEMOGLOBIN 8.5 g/dL (12.0-16.0)
[2016-10-26 07:08] LABS: BASOPHILS 0.2 %; BASOPHILS ABSOLUTE 0.02 10/3/uL (0.0-0.16); EOSINOPHILS 3.9 %; EOSINOPHILS ABSOLUTE 0.39 10/3/uL (0.0-0.53); HEMATOCRIT 23.3 % (36.0-48.0); IMMATURE GRANULOCYTES 2.6 %; IMMATURE GRANULOCYTES ABSOLUTE 0.26 10/3/uL (0.0-0.11); LYMPHOCYTES 25.5 %; LYMPHOCYTES ABSOLUTE 2.55 10/3/uL (0.67-4.30); MEAN CORPUS HGB CONC 34.3 g/dL (32.0-36.0); MEAN CORPUSCULAR HEMOGLOB 33.6 pg (26.0-34.0); MEAN CORPUSCULAR VOLUME 97.9 fL (80-100); MEAN PLATELET VOLUME 9.2 fL (9.2-13.0); MONOCYTES 7.2 %; MONOCYTES ABSOLUTE 0.72 10/3/uL (0.21-1.20); NEUTROPHILS 60.6 %; NEUTROPHILS ABSOLUTE 6.07 10/3/uL (2.02-8.40); PLATELET COUNT 196 10/3/uL (150-400); RBC DISTRIBUTION WIDTH 15.7 % (12.0-16.0); RED CELL COUNT 2.38 10/6/uL (4.0-5.6)
[2016-10-26 07:13] LABS: MANUAL DIFF NO %
[2016-10-26 07:14] LABS: ALBUMIN 2.4 G/DL (3.5-5.0); CALCIUM, SERUM 7.8 MG/DL (8.5-10.4); CHLORIDE, SERUM 114 MMOL/L (96-112); CREATININE 2.77 MG/DL (0.55-1.02); GFR AFRICAN AMERICAN 18 ML/MIN (>=60); GFR NON AFRICAN AMERICAN 16 ML/MIN (>=60); GLUCOSE, SERUM 149 MG/DL (60-99); POTASSIUM, SERUM 3.6 MMOL/L (3.5-5.3); SODIUM, SERUM 146 MMOL/L (135-148)
[2016-10-26 07:17] LABS: BUN (BLOOD UREA NITROGEN) 54 MG/DL (6-23); CO2 (CARBON DIOXIDE) 23 MMOL/L (24-34)
[2016-10-26 15:36] LABS: HEMATOCRIT 25.6 % (36.0-48.0); HEMOGLOBIN 8.6 g/dL (12.0-16.0)
[2016-10-27 07:08] LABS: HEMATOCRIT 24.7 % (36.0-48.0); HEMOGLOBIN 8.6 g/dL (12.0-16.0); MEAN CORPUS HGB CONC 34.8 g/dL (32.0-36.0); MEAN CORPUSCULAR HEMOGLOB 33.6 pg (26.0-34.0); MEAN CORPUSCULAR VOLUME 96.5 fL (80-100); MEAN PLATELET VOLUME 9.1 fL (9.2-13.0); PLATELET COUNT 205 10/3/uL (150-400); RBC DISTRIBUTION WIDTH 15.4 % (12.0-16.0); RED CELL COUNT 2.56 10/6/uL (4.0-5.6); WHITE BLOOD CELLS 13.6 10/3/uL (4.5-10.5)
[2016-10-27 07:11] LABS: MANUAL DIFF YES %
[2016-10-27 07:28] LABS: ALBUMIN 2.6 G/DL (3.5-5.0); CALCIUM, SERUM 8.4 MG/DL (8.5-10.4); CHLORIDE, SERUM 108 MMOL/L (96-112); CO2 (CARBON DIOXIDE) 20 MMOL/L (24-34); CREATININE 2.96 MG/DL (0.55-1.02); GFR AFRICAN AMERICAN 17 ML/MIN (>=60); GFR NON AFRICAN AMERICAN 14 ML/MIN (>=60); POTASSIUM, SERUM 3.6 MMOL/L (3.5-5.3); SODIUM, SERUM 142 MMOL/L (135-148)
[2016-10-27 07:30] LABS: BUN (BLOOD UREA NITROGEN) 50 MG/DL (6-23); GLUCOSE, SERUM 207 MG/DL (60-99)
[2016-10-27 07:44] LABS: BAND NEUTROPHILS 6 %; LYMPHOCYTES 8 %; LYMPHOCYTES ABSOLUTE (CALC) 1.09 10/3/uL (0.67-4.30); MONOCYTES 4 %; MONOCYTES ABSOLUTE (CALC) 0.54 10/3/uL (0.21-1.20); NEUTROPHILS ABSOLUTE (CALC) 11.97 10/3/uL (2.02-8.40); PLATELET ESTIMATE ADQ (ADEQUATE); RBC MORPHOLOGY NORM (NORMAL); SEGMENTED NEUTROPHIL (0) 82 %; TOTAL NUCLEATED CELLS 100
[2016-10-27 15:50] LABS: HEMATOCRIT 26.3 % (36.0-48.0); HEMOGLOBIN 8.8 g/dL (12.0-16.0)
[2016-10-28 05:51] LABS: HEMATOCRIT 24.9 % (36.0-48.0); HEMOGLOBIN 8.5 g/dL (12.0-16.0); MEAN CORPUS HGB CONC 34.1 g/dL (32.0-36.0); MEAN CORPUSCULAR HEMOGLOB 33.5 pg (26.0-34.0); MEAN PLATELET VOLUME 9.6 fL (9.2-13.0); PLATELET COUNT 186 10/3/uL (150-400); RBC DISTRIBUTION WIDTH 15.8 % (12.0-16.0); RED CELL COUNT 2.54 10/6/uL (4.0-5.6); WHITE BLOOD CELLS 11.7 10/3/uL (4.5-10.5)
[2016-10-28 05:52] LABS: MANUAL DIFF YES %
[2016-10-28 06:03] LABS: ALBUMIN 2.7 G/DL (3.5-5.0); BUN (BLOOD UREA NITROGEN) 52 MG/DL (6-23); CALCIUM, SERUM 8.1 MG/DL (8.5-10.4); CHLORIDE, SERUM 108 MMOL/L (96-112); CO2 (CARBON DIOXIDE) 23 MMOL/L (24-34); CREATININE 2.97 MG/DL (0.55-1.02); GFR AFRICAN AMERICAN 17 ML/MIN (>=60); GFR NON AFRICAN AMERICAN 14 ML/MIN (>=60); GLUCOSE, SERUM 223 MG/DL (60-99); POTASSIUM, SERUM 3.6 MMOL/L (3.5-5.3); SODIUM, SERUM 142 MMOL/L (135-148)
[2016-10-28 06:06] LABS: PHOSPHORUS, SERUM 3.1 MG/DL (2.5-4.5)
[2016-10-28 06:11] LABS: LYMPHOCYTES 18 %; LYMPHOCYTES ABSOLUTE (CALC) 2.11 10/3/uL (0.67-4.30); MONOCYTES 4 %; MONOCYTES ABSOLUTE (CALC) 0.47 10/3/uL (0.21-1.20); NEUTROPHILS ABSOLUTE (CALC) 9.13 10/3/uL (2.02-8.40); NUCLEATED RED BLOOD CELLS 1 /100WBC (0); PLATELET ESTIMATE ADQ (ADEQUATE); RBC MORPHOLOGY NORM (NORMAL); SEGMENTED NEUTROPHIL (0) 78 %; TOTAL NUCLEATED CELLS 100
[2016-10-28 18:38] LABS: HEMOGLOBIN 9.3 g/dL (12.0-16.0)
[2016-10-28 18:40] LABS: HEMATOCRIT 28.5 % (36.0-48.0)
[2016-10-29 06:47] LABS: BASOPHILS 0.2 %; BASOPHILS ABSOLUTE 0.02 10/3/uL (0.0-0.16); EOSINOPHILS 0.3 %; EOSINOPHILS ABSOLUTE 0.03 10/3/uL (0.0-0.53); HEMATOCRIT 25.7 % (36.0-48.0); HEMOGLOBIN 8.6 g/dL (12.0-16.0); IMMATURE GRANULOCYTES 2.3 %; IMMATURE GRANULOCYTES ABSOLUTE 0.26 10/3/uL (0.0-0.11); LYMPHOCYTES 14.6 %; LYMPHOCYTES ABSOLUTE 1.68 10/3/uL (0.67-4.30); MEAN CORPUS HGB CONC 33.5 g/dL (32.0-36.0); MEAN CORPUSCULAR HEMOGLOB 33.5 pg (26.0-34.0); MEAN PLATELET VOLUME 9.6 fL (9.2-13.0); MONOCYTES 6.7 %; MONOCYTES ABSOLUTE 0.77 10/3/uL (0.21-1.20); NEUTROPHILS 75.9 %; NEUTROPHILS ABSOLUTE 8.73 10/3/uL (2.02-8.40); PLATELET COUNT 188 10/3/uL (150-400); RED CELL COUNT 2.57 10/6/uL (4.0-5.6); WHITE BLOOD CELLS 11.5 10/3/uL (4.5-10.5)
[2016-10-29 06:50] LABS: MANUAL DIFF NO %
[2016-10-29 06:59] LABS: ALBUMIN 2.7 G/DL (3.5-5.0); BUN (BLOOD UREA NITROGEN) 53 MG/DL (6-23); CALCIUM, SERUM 8.5 MG/DL (8.5-10.4); CHLORIDE, SERUM 110 MMOL/L (96-112); CO2 (CARBON DIOXIDE) 23 MMOL/L (24-34); CREATININE 2.94 MG/DL (0.55-1.02); GFR AFRICAN AMERICAN 17 ML/MIN (>=60); GFR NON AFRICAN AMERICAN 15 ML/MIN (>=60); GLUCOSE, SERUM 240 MG/DL (60-99); PHOSPHORUS, SERUM 2.6 MG/DL (2.5-4.5); POTASSIUM, SERUM 3.5 MMOL/L (3.5-5.3); SODIUM, SERUM 144 MMOL/L (135-148)
[2016-10-29] MEDS ORDERED: LIPITOR40 PO (11:34)
[2016-10-29] MEDS ORDERED: SPIRO25 PO (11:36)
[2016-10-29] MEDS ORDERED: PROTONIX PO (11:36)
[2017-01-13] MEDS ORDERED: NOVOLOG SC ×2 (14:42→14:45)
[2017-01-13] MEDS ORDERED: BUM1 PO (14:49)
[2017-02-21] MEDS ORDERED: *UNABLE1 (20:33)
[2017-02-21] MEDS ORDERED: ROXICODONE15 MG PO (20:41)
[2017-02-21] MEDS ORDERED: NOVOPENMIX SC (20:42)
[2017-02-21] MEDS ORDERED: LEVOTHYROXIN75 MCG PO (20:42)
[2017-02-21] MEDS ORDERED: BUM2 PO ×2 (20:42→20:43)
[2017-02-21] MEDS ORDERED: COREG6 PO (20:42)
[2017-02-21] MEDS ORDERED: NITROII30C TOP (20:42)
[2017-02-21] MEDS ORDERED: ISORDIL20 PO (20:43)
[2017-02-21] MEDS ORDERED: KEPPRA250 PO (20:43)
[2017-02-21] MEDS ORDERED: APRES25 PO (20:43)
[2017-02-21] MEDS ORDERED: VITAMIN D2000 UNIT PO (20:44)
[2017-02-21] MEDS ORDERED: HALF81 PO (20:44)
[2017-02-21] MEDS ORDERED: MULTIVIT/MIN PO (20:44)
[2017-02-21] MEDS ORDERED: FERROUS SULF325 M1 PO (20:44)
[2017-03-20] MEDS ORDERED: PROTONIX PO (10:37)
[2017-03-20] MEDS ORDERED: KDUR10 PO (10:37)
[2017-04-03] MEDS ORDERED: NITROSTAT0.4 MG SL (20:14)
[2017-04-03] MEDS ORDERED: ATV1 PO (20:15)
[2017-04-03] MEDS ORDERED: LIDODERM TOP (20:15)
[2017-05-03] MEDS ORDERED: PRIN2.5 PO (11:51)
[2017-05-03] MEDS ORDERED: [UNRECOGNIZED DRUG - CODE] TOP (11:53)
[2017-05-03] MEDS ORDERED: RENA-VITE PO (11:55)
[2017-05-03] MEDS ORDERED: T PO (11:56)
[2017-05-03] MEDS ORDERED: ZOFRAN ODT4 MG PO (11:57)
[2017-05-03] MEDS ORDERED: OXYIR5 MG PO (12:00)
[2017-05-03] MEDS ORDERED: [UNRECOGNIZED DRUG - CODE] T (12:04)
[2017-05-03] MEDS ORDERED: INSTA GLUCOSE PO (12:10)
== END 2016-10-29 13:44 | disposition home health service (06) | DRG 280 ==
LOC: CCU 04:12 → 7NO 10-25 15:40
PROVIDERS: Internal Medicine; Internal Medicine Cardiovascular Disease; Internal Medicine Critical Care Medicine; Internal Medicine Gastroenterology; Internal Medicine Nephrology; Internal Medicine Pulmonary Disease
PROC: 02HV33Z Insertion of Infusion Device into Superior Vena Cava, Percutaneous Approach (ICD-10-PCS; 2016-10-21)
PROC: 4A02X4A Measurement of Cardiac Electrical Activity, Guidance, External Approach (ICD-10-PCS; 2016-10-21)
PROC: 30233N1 Transfusion of Nonautologous Red Blood Cells into Peripheral Vein, Percutaneous Approach (ICD-10-PCS; 2016-10-21)
PROC: 0DJ08ZZ Inspection of Upper Intestinal Tract, Via Natural or Artificial Opening Endoscopic (ICD-10-PCS; principal; 2016-10-25 12:34)
DX: I13.0 Hypertensive heart and chronic kidney disease with heart failure and stage 1 through stage 4 chronic kidney disease, or unspecified chronic kidney disease (principal); J18.9 Pneumonia, unspecified organism; I21.4 Non-ST elevation (NSTEMI) myocardial infarction; K22.6 Gastro-esophageal laceration-hemorrhage syndrome; J96.01 Acute respiratory failure with hypoxia; J96.02 Acute respiratory failure with hypercapnia; N18.4 Chronic kidney disease, stage 4 (severe); N17.9 Acute kidney failure, unspecified; E11.65 Type 2 diabetes mellitus with hyperglycemia; E11.22 Type 2 diabetes mellitus with diabetic chronic kidney disease; I50.23 Acute on chronic systolic (congestive) heart failure; D62 Acute posthemorrhagic anemia; I25.5 Ischemic cardiomyopathy; I08.3 Combined rheumatic disorders of mitral, aortic and tricuspid valves; I44.7 Left bundle-branch block, unspecified; D47.2 Monoclonal gammopathy; I25.10 Atherosclerotic heart disease of native coronary artery without angina pectoris; I73.9 Peripheral vascular disease, unspecified; E03.9 Hypothyroidism, unspecified; M19.90 Unspecified osteoarthritis, unspecified site; R41.0 Disorientation, unspecified; Z88.2 Allergy status to sulfonamides; Z88.5 Allergy status to narcotic agent; Z88.8 Allergy status to other drugs, medicaments and biological substances; Z95.1 Presence of aortocoronary bypass graft; Z82.49 Family history of ischemic heart disease and other diseases of the circulatory system; Z98.890 Other specified postprocedural states; Z95.810 Presence of automatic (implantable) cardiac defibrillator; K21.0 Gastro-esophageal reflux disease with esophagitis; K25.9 Gastric ulcer, unspecified as acute or chronic, without hemorrhage or perforation; K29.80 Duodenitis without bleeding; G47.33 Obstructive sleep apnea (adult) (pediatric); G89.4 Chronic pain syndrome; Z95.5 Presence of coronary angioplasty implant and graft; T45.515A Adverse effect of anticoagulants, initial encounter; Z79.891 Long term (current) use of opiate analgesic; Z79.4 Long term (current) use of insulin
CPT/HCPCS: 36415; 36569; 71010; 71020; 74176; 80048; 80053; 80069; 81001; 82043; 82150; 82330; 82550; 82553; 82570; 82805; 82962; 83036; 83605; 83690; 83735; 83880; 84100; 84145; 84300; 84439; 84443; 84484; 85014; 85018; 85025; 85610; 85730; 86850; 86900; 86901; 86920; 87040; 87070; 87205; 87449; 87641; 87804; 88305; 88342; 93005; 93975; 94640; 94660; 96374; 96375; 97162-GP; 99291; A9270-GY; C1751; C8929; C9113; G8978-CK-GP; G8979-CJ-GP; J0360; J0456; J2405; J2550; J2765; J2920; J2930; P9016; Q9957

== ENCOUNTER 2016-12-31 17:30 | Inpatient (IN) | payer MEDICARE, OTHER ==
--- NOTE | ~2016-12-31 | HP ---
History And Physical [place] [id number] [place]. [address] NAME: MARCOS ESPINOZA : 39 STATUS : ADM IN [facility]#: [id number] AGE: 81 ADM/REG DATE : 12/31/16 MR#: [id number] REPORT SERV DATE: 01/01/17 DICTATED BY: YAMILETH ROSSI DATE: 01/01/17 REPORT STATUS : Draft TRANSCRIBED BY: MODL DATE: 01/01/17 DATE OF ADMISSION: 12/31/2016 CHIEF COMPLAINT: A 81-year-old female presenting with shortness of breath and cough. HISTORY OF PRESENT ILLNESS: The patient's history was obtained through an interview with the patient, coupled with review of [facility] and [facility] medical records. About three days prior to admission, the patient developed increasing shortness of breath characterized by dyspnea on exertion with a nonproductive cough. She describes increasing chest discomfort on the right side of her anterior chest radiating to the lateral aspect of her chest and to the back, a sharp quality, exacerbated by coughing 8/10 severity. She has had orthostatics symptoms. She has chronic stable lymphedema. No palpitations, no diarrhea, no dysuria, no urinary frequency, no confusion. REVIEW OF SYSTEMS: Otherwise, a 14-point review of systems was obtained was negative. PAST MEDICAL HISTORY: 1. Pneumonia October 2016, by CT scan. 2. Chronic systolic congestive heart failure. Ejection fraction 30% with pulmonary hypertension. 3. Coronary artery disease, status post CABG and stent placement under the care of Dr. Diez. 4. Diabetes. 5. Chronic back pain. 6. Previous history of respiratory failure on BiPAP. 7. Chronic kidney disease, stage IV. Baseline creatinine of 2.8 to 3.4, seen by Dr. Wright. 8. AICD/pacer placement. 9. Peripheral arterial disease, renal artery stenosis, carotid disease, possible 80% stenosis of one of her carotid arteries. 10.Monogammopathy of undetermined significance. 11.Hypothyroidism. 12.Anemia. 13.Urinary tract infection with cystitis. 14.Chronically elevated troponin between 0.20 and 0.70, since 2010. 15.Peptic ulcer disease seen by Dr. Urias with active disease as recently as October 2016. 16.Elevated cholesterol. 17.Bacteremia with Pantoea and Sphingomonas in 2010. 18.Cellulitis of the face. History And Physical [place] [id number] [place]. [address] NAME: MARCOS ESPINOZA : 39 STATUS : ADM IN PAT#: [id number] AGE: 81 ADM/REG DATE : 12/31/16 MR#: [id number] REPORT SERV DATE: 01/01/17 DICTATED BY: YAMILETH ROSSI DATE: 01/01/17 REPORT STATUS : Draft TRANSCRIBED BY: SEBASTIAN DATE: 01/01/17 19.Chronic right-sided lymphedema since her bypass surgery greater than left. PAST SURGICAL HISTORY: 1. CABG 1993. 2. x3. 3. Miky fundoplication. 4. AICD plus pacemaker placement. 5. Cervical spine surgery. 6. Bilateral rotator cuff repair. 7. Cholecystectomy. 8. Gastric perforation surgery. ALLERGIES: TO DARVON, STADOL, SULFA, CODEINE. SOCIAL HISTORY: No tobacco abuse. No alcohol abuse. Has been twice. Has three children. Lives in [place], [place]. 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 She is visited by home health care. FAMILY HISTORY: Mother and father of myocardial infarction. A brother and 5 sisters have all had coronary artery disease. A strong family history of diabetes as well. CURRENT MEDICATIONS: Include aspirin 81 mg daily, Bumex 2 mg p.o. daily, Coreg 12.5 mg p.o. b.i.d., vitamin D iron supplement, Novolin 70/30, 35 units in the morning and 25 units in the evening, Synthroid 100 mcg p.o. daily, Lidoderm patch, nitroglycerin patch, Roxicodone 15 mg p.o. q.6 hours p.r.n., Protonix 40 mg p.o. daily, Paxil 10 mg p.o. daily, Aldactone 12.5 mg p.o. daily. PHYSICAL EXAMINATION: VITAL SIGNS: Temperature 98.7, pulse 68, blood pressure 119/53, respiratory rate 19, O2 sat 85% on room air. GENERAL: An ill-appearing female, in evidence of distress secondary to shortness of breath and cough. HEENT: Pupils equal, round, and reactive to light. No conjunctival pallor. No scleral icterus. Nares are patent. Oropharynx is clear of obstruction. Moist mucous membranes. NECK: Trachea midline. No thyromegaly. LYMPH: No cervical lymphadenopathy. No supraclavicular lymphadenopathy. RESPIRATORY: The patient has scattered rhonchi on examination that predominate her right lower lung and right middle lung, seemed to have areas of focal egophony with diminished breath sounds. No active wheezes. I do not appreciate any pulmonary rales. The patient has a labored respiratory effort. CARDIOVASCULAR: Regular rate and rhythm. Paced on the monitor. No murmurs, rubs, or gallops. The patient has chronic appearing lower extremity edema, the right side greater than the left. ABDOMEN: Soft, nontender, nondistended. Normal bowel sounds auscultated throughout. No hepatosplenomegaly. DERMATOLOGICAL: Warm and dry. EXTREMITIES: No pallor, no cyanosis. History And Physical [address] [place]. [address] NAME: MARCOS ESPINOZA : 39 STATUS : ADM IN [facility]#: [id number] AGE: 81 ADM/REG DATE : 12/31/16 MR#: [id number] REPORT SERV DATE: 01/01/17 DICTATED BY: YAMILETH ROSSI DATE: 01/01/17 REPORT STATUS : Draft TRANSCRIBED BY: SEBASTIAN DATE: 01/01/17 PSYCHIATRIC: Normal affect. Good mood. Alert and oriented x3. LABORATORY DATA: White blood cell count 15.7, hemoglobin 9.4, hematocrit 29.2, platelets 244, MCV 103.5. Sodium 135, potassium 3.9, chloride 106, bicarb 27, BUN 51, creatinine 3.70, glucose 94. Brain natriuretic peptide 678, troponin 0.13, albumin 2.6. INR 1.3. Liver enzymes within normal limits. ABG demonstrates pH 7.39, a PaCO2 of 36, a PaO2 of 77, a bicarb of 22 urine. STUDIES: 1. Chest x-ray by my own evaluation shows right upper lung, right middle lung pneumonia increased compared to October 2016. 2. EKG by my own evaluation shows atrial ventricular pacing. ASSESSMENT AND PLAN: 1. Sepsis with white blood cell count of 15.7. Hypoxia. Check blood cultures. Place on IV antibiotics. Check lactic acid. 2. Pneumonia, right upper lung. Check blood cultures. Place on IV antibiotics. 3. Chronic kidney disease, stage IV. 4. Chronic systolic congestive heart failure. Ejection fraction 30%. Chronic stable right lymphedema. 5. Chronically elevated troponin. 6. AICD/pacer placement. 7. Hypoxic respiratory failure. Provide supportive care. KPL/MODL Yamileth Rossi M.D. / [id number] CC: MD Froylan Espino M.D. Julie M Bilbrey, M.D. Donald Franklin Jr, M.D. James Hoback Jr., M.D.
--- NOTE | ~2016-12-31 | DS ---
Discharge Summary [address] [place]. [address] NAME: MARCOS ESPINOZA : 39 STATUS : DIS IN PAT#: [id number] AGE: 81 ADM/REG DATE : 12/31/16 MR#: [id number] REPORT SERV DATE: 01/08/17 DICTATED BY: RAJ ABBOTT DATE: 01/05/17 REPORT STATUS : Draft TRANSCRIBED BY: MODL DATE: 01/05/17 ADMISSION DATE: 12/31/2016 DISCHARGE DATE: 01/05/2017 DISCHARGE DIAGNOSES: 1. Sepsis. 2. Right upper lobe pneumonia. 3. Acute on chronic systolic congestive heart failure with ejection fraction of 40% by echocardiography. 4. Acute hypoxemic respiratory failure. 5. Chronic kidney disease 5. 6. Type 2 diabetes with hyperglycemia and hypoglycemia. 7. Positive troponin with present illness thought to be demand ischemia with history of coronary artery disease, coronary artery bypass grafting, and previous stents. 8. Automatic implantable cardioverter-defibrillator pacemaker. 9. Peripheral arterial disease. 10.Renal artery stenosis. 11.Carotid disease. 12.Chronic pain. 13.Monoclonal gammopathy of uncertain significance. 14.Hypothyroid, on replacement. 15.Chronic anemia. 16.Hyperlipoproteinemia. 17.Left groin wound, improved at discharge. 18.Lymphedema. 19.Gastroesophageal reflux disease with history of Miky. 20.History of gastric ulcer. 21.Valvular heart disease with moderate mitral annular and valvular calcification with mild mitral stenosis. Mean gradient 6 per echo with mild to moderate aortic regurgitation. 22.Possible [id number] shunt across interatrial septum on echocardiography. 23.Gastrointestinal bleeding 10/2016 with upper gastrointestinal endoscopy showing non- severe reflux esophagitis, Emily-Tobar tear, Miky fundoplication, gastritis, gastric ulcer, and duodenitis. 24.Low vitamin D with high PTH. 25.Depression. 26.Diverticulosis. OPERATIONS AND PROCEDURES: None. PRESENT ILLNESS: This is a medically complex 81-year-old white female who was triaged in the emergency room on 12/31/2016 at 1730 hours with chief complaint of shortness of breath. Admission vital signs: Blood pressure 119/53, temperature 98.7, pulse 68, respirations 19, and O2 saturation 91% on room air. After evaluation in the emergency room, her diagnoses were: Discharge Summary [address] [place]. [address] NAME: MARCOS ESPINOZA : 39 STATUS : DIS IN PAT#: [id number] AGE: 81 ADM/REG DATE : 12/31/16 MR#: [id number] REPORT SERV DATE: 01/08/17 DICTATED BY: RAJ ABBOTT DATE: 01/05/17 REPORT STATUS : Draft TRANSCRIBED BY: MODL DATE: 01/05/17 1. Chronic kidney disease. 2. Chronic shortness of breath. 3. Bronchitis versus early pneumonia. 4. Congestive heart failure. She was referred to the Hospitalist Service. She was seen by Dr. Lamine Mejia and admitted as described on admission history and physical examination. Additional history included: 1. A three-day history of increasing shortness of breath with a nonproductive cough and a sharp, stabbing, cough-induced chest pain. 2. Additionally, she had been here 10/19/2016 to 10/29/2016 with acute hypoxemic respiratory failure. 3. Acute on chronic systolic heart failure exacerbation. 4. Gastrointestinal bleeding. 5. Possible community-acquired pneumonia. 6. All in the setting of the above-mentioned comorbidities. She had been here 08/11/2016 to 08/14/2016 with acute metabolic encephalopathy thought secondary to hypoglycemia. ADDITIONAL HISTORY: Per Dr. Mejia. PHYSICAL EXAMINATION: Per Dr. Mejia. ADMISSION LABORATORY: Per Dr. Mejia. HOSPITAL COURSE: She was admitted by Dr. Mejia with: 1. Sepsis. 2. Pneumonia, right upper lobe. 3. Chronic kidney disease, stage 4. 4. Chronic systolic congestive heart failure. 5. Chronically elevated troponin. 6. AICD pacemaker. 7. Hypoxic respiratory failure. On admission, cultures were done. She was started on broad-spectrum antimicrobials. Her home medications were continued. Her hospitalist care was assumed by the undersigned. She was initially seen on 01/01/2017. She had a persistent cough and shortness of breath. A chest x-ray showed some vascular congestion superimposed on a pulmonary infiltrate. Her medications were adjusted. Over the course of her hospitalization, there was a slow but steady improvement in her cough and dyspnea such that by the time of discharge she had no cough and she thought her dyspnea was stable over baseline. Discharge Summary [address] [place]. [address] NAME: MARCOS ESPINOZA : 39 STATUS : DIS IN PAT#: [id number] AGE: 81 ADM/REG DATE : 12/31/16 MR#: [id number] REPORT SERV DATE: 01/08/17 DICTATED BY: RAJ ABBOTT DATE: 01/05/17 REPORT STATUS : Draft TRANSCRIBED BY: SEBASTIAN DATE: 01/05/17 Radiographically, she had less pulmonary vascular congestion and an improved infiltrate. On admission, her white blood cell count was 15.7 and 8.4 at discharge. Streptococcal urinary antigen was negative as was a Legionella urinary antigen. Blood cultures grew staph species agglutination negative. Prior to formal identification, vancomycin was initiated. Subsequently ID, pharmacy thought these were likely contaminants and her vancomycin was discontinued and Rocephin and Zithromax started on admission continued. Her renal function stayed stable while hospitalized. Her admission creatinine was 3.7 and was 3.47 at discharge. She had recently seen her agricultural equipment test engineer at [place], Dr. Ramirez. Her home insulin had been discontinued because of a low hemoglobin A1c. Associated with her present illness, she had significant hyperglycemia with blood sugars in the high 200s. Insulin was restarted. Her blood sugar control improved. She was seen by Physical Therapy during her hospitalization. alf facility versus inpatient rehab was recommended. The patient wanted to go home rather than rehab given her family and home health care support. On 01/05/2017, she had no cough. Her dyspnea was stable. She had no pain except in her knees. She was stronger. There was no change in her chronic anorexia or nausea. She thought she could manage at home. Her room air saturation was 92%. Her blood pressure was normal. She had no rales. On exam, no gallop and no pitting edema. Her laboratory studies were as noted. At this point in her hospitalization, it was felt she had achieved a level of improvement and stability where she could be safely discharged home. She will continue home health care as previously prescribed. She will limit her fluid intake to 1500 mL per 24 hours and eat a low-sodium diet. She was asked to follow up with the primary care physician Dr. Snow next week. She has followup appointment scheduled to see her triage rn, Dr. Wright; carpet inspector finished, Dr. Diez; and agricultural equipment test engineer, Dr. Ramirez. DISCHARGE MEDICATIONS: Pending outpatient followup: Aspirin 81 mg daily; Bumex 2 mg daily with an extra 1 mg if she gains 2 pounds; Coreg 12.5 mg twice daily; vitamin D 4000 units daily; iron sulfate 325 mg daily. She will not use her home 70/[address] Ramirez's recommendation, but I advised to check her blood sugar two to three times daily and if consistently over 180, to communicate with Dr. Ramirez for recommendations. She will continue Synthroid 100 mcg daily, lidocaine patch to painful areas daily, Nitro-Dur patch 0.6 mg/hour two patches daily, Protonix 40 mg daily, Paxil 10 mg daily, Aldactone 12.5 mg daily, Roxicodone 15 mg every six hours as needed, and Ceftin 500 mg twice daily for four days starting 01/06/2017, noting she received five doses of 500 mg Zithromax and six doses of Rocephin 1 g IV while hospitalized. Discharge Summary [address] [address] NAME: MARCOS ESPINOZA : 39 STATUS : DIS IN PAT#: [id number] AGE: 81 ADM/REG DATE : 12/31/16 MR#: [id number] REPORT SERV DATE: 01/08/17 DICTATED BY: RAJ ABBOTT DATE: 01/05/17 REPORT STATUS : Draft TRANSCRIBED BY: SEBASTIAN DATE: 01/05/17 Discharge time greater than 30 minutes. DICTATED BY: Raj Abbott M.D. DD/SEBASTIAN Raj Abbott M.D. / [id number] CC: Juan Tatum M.D. Donald Franklin Jr, M.D. Kevin P Luce, M.D. Christopher Wagg, M.D. James Hoback Jr., M.D. Asma Khan, MD
--- NOTE | ~2016-12-31 | CN ---
Consultation Report [facility] [address] [place]. [address] NAME: MARCOS PHILLIPS : 39 STATUS : DIS IN PAT#: [id number] AGE: 81 ADM/REG DATE : 12/31/16 MR#: [id number] REPORT SERV DATE: 01/14/17 DICTATED BY: ABBY GONZALEZ DATE: 01/13/17 REPORT STATUS : Draft TRANSCRIBED BY: MODL DATE: 01/13/17 DATE OF CONSULTATION: 01/13/2017 REASON FOR CONSULTATION: Chronic kidney disease stage 5 with dyspnea. HISTORY OF PRESENT ILLNESS: Mrs. Phillips is a pleasant 81-year-old white female with extensive medical problems, including chronic kidney disease stage 5, who presented to the hospital with shortness of breath. She states that she woke this morning, coughing and had progressive dyspnea through today, which prompted her to be evaluated in the ER. She had no fever. She had a dry hacking cough and left-sided chest pain, sharp and worse with breathing. She had no abdominal pain, nausea, vomiting, chills, or other systemic complaints. On evaluation in the ER, she had a BUN and creatinine of 68 and 4.01. Her baseline serum creatinine ranges 3.4 to 3.6. Her D-dimer was mildly elevated. Therefore, she had a V/Q scan, which was normal. Her chest x-ray while unavailable for review is stated to show bilateral pneumonia. She was initiated on vancomycin and Maxipime as well as Zithromax and has been admitted for further evaluation and treatment. PAST MEDICAL HISTORY: 1. Chronic kidney disease stage 5, baseline creatinine 3.4 to 3.6, followed by Dr. Ismael Wright. 2. Systolic congestive heart failure, ejection fraction 30%. 3. Coronary artery disease, status post CABG. 4. Diabetes mellitus. 5. Chronic back pain. 6. AICD with pacer placement. 7. Peripheral vascular disease with renal artery stenosis, carotid disease, including 80% stenosis of one of her carotid arteries. 8. Monoclonal gammopathy. 9. Hypothyroidism. 10.Previous urinary tract infections. 11.Peptic ulcer disease. PAST SURGICAL HISTORY: 1. CABG. 2. x3. 3. Miky fundoplication. 4. AICD plus pacemaker placement. 5. Cervical spine surgery. 6. Bilateral rotator cuff surgery. 7. Cholecystectomy. 8. Gastric perforation surgery. ALLERGIES: DARVON, STADOL, SULFA, CODEINE. SOCIAL HISTORY: No tobacco use. No alcohol use. She has been twice, has three Consultation Report [id number] [place]. [address] NAME: MARCOS PHILLIPS : 39 STATUS : DIS IN PAT#: [id number] AGE: 81 ADM/REG DATE : 12/31/16 MR#: [id number] REPORT SERV DATE: 01/14/17 DICTATED BY: ABBY GONZALEZ DATE: 01/13/17 REPORT STATUS : Draft TRANSCRIBED BY: SEBASTIAN DATE: 01/13/17 children. Lives in [place], [place]. 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 FAMILY HISTORY: Mother and father of myocardial infarction. She had a brother and five sisters, all had coronary artery disease. HOME MEDICATIONS: 1. Aspirin 81 daily. 2. Bumex 2 mg daily. 3. Carvedilol 12.5 twice a day. 4. Cefuroxime 500 twice a day. 5. Vitamin D3 1000 units daily. 6. Ferrous sulfate 325 daily. 7. Insulin 25 units subcutaneously a.c. and h.s. 8. Synthroid 75 mcg daily. 9. Oxycodone 15 mg q.6 hours p.r.n. pain. 10.Protonix 40 q.a.m. 11.Paxil 10 daily. 12.Spironolactone 25 daily. REVIEW OF SYSTEMS: All systems reviewed and negative, excluding those mentioned and highlighted in history of present illness. PHYSICAL EXAMINATION: VITAL SIGNS: Blood pressure 114/48, oxygen saturation 92%, temperature 98.2, pulse 63, respiratory rate 18. GENERAL: This is a chronically ill, white female, resting comfortably, in no acute distress. HEENT: Normocephalic, atraumatic. Oropharynx clear. No exudate. NECK: Supple. No JVD or thyromegaly. No carotid bruits. Trachea midline. No stridor. CARDIOVASCULAR: Regular rate and rhythm. S1 and S2 without rubs or gallops. Point of maximal impulse nondisplaced. RESPIRATORY: Bibasilar rales, left greater than right. No wheeze. No tachypnea or accessory muscles in use. GI: Abdomen is soft, nontender, nondistended. No hepatosplenomegaly appreciated. EXTREMITIES: No cyanosis or clubbing. She does have 1+ pretibial edema. LYMPH: No supraclavicular, cervical, inguinal or axillary adenopathy. SKIN: No rash or breakdown. Normal turgor. LABORATORY DATA AND DIAGNOSTIC DATA: BNP 578, WBC 11.6, hemoglobin 9.4, hematocrit 29.5, platelets 245. WBC 11.6, hemoglobin 9.4, hematocrit 29.5, platelets 245. ASSESSMENT: 1. Chronic kidney disease stage 5, baseline creatinine 3.4 to 3.8, followed by Dr. Ismael Wright. Consultation Report [address] [place]. [address] NAME: MARCOS PHILLIPS : 39 STATUS : DIS IN PAT#: [id number] AGE: 81 ADM/REG DATE : 12/31/16 MR#: [id number] REPORT SERV DATE: 01/14/17 DICTATED BY: ABBY GONZALEZ DATE: 01/13/17 REPORT STATUS : Draft TRANSCRIBED BY: SEBASTIAN DATE: 01/13/17 2. Dyspnea with pneumonia-unable to view x-ray, but presently does not appear hypervolemic. 3. Hypoxia secondary to dyspnea with pneumonia. 4. Diabetes mellitus type 2. PLAN: 1. Continue home diuretic regimen for now. 2. IV antibiotics. 3. Hyperkalemia has already been addressed. Group will follow. Thank you for consultation. LUKAS/SEBASTIAN Abby Gonzalez M.D. / [id number] CC: Juan Tatum M.D.
[~2016-12-31 17:30] MED LIST changes: +LIPITOR40 PO; +SPIRO25 PO
[2016-12-31 19:15] LABS: BASOPHILS 0.2 %; BASOPHILS ABSOLUTE 0.03 10/3/uL (0.0-0.16); EOSINOPHILS 2.5 %; EOSINOPHILS ABSOLUTE 0.39 10/3/uL (0.0-0.53); HEMATOCRIT 29.2 % (36.0-48.0); HEMOGLOBIN 9.4 g/dL (12.0-16.0); IMMATURE GRANULOCYTES 0.4 %; IMMATURE GRANULOCYTES ABSOLUTE 0.07 10/3/uL (0.0-0.11); LYMPHOCYTES 12.4 %; LYMPHOCYTES ABSOLUTE 1.95 10/3/uL (0.67-4.30); MEAN CORPUSCULAR HEMOGLOB 33.3 pg (26.0-34.0); MONOCYTES 9.7 %; MONOCYTES ABSOLUTE 1.52 10/3/uL (0.21-1.20); NEUTROPHILS 74.8 %; NEUTROPHILS ABSOLUTE 11.75 10/3/uL (2.02-8.40); RBC DISTRIBUTION WIDTH 15.6 % (12.0-16.0); RED CELL COUNT 2.82 10/6/uL (4.0-5.6)
[2016-12-31 19:17] LABS: ER CBC TAT 0 Hrs 07 Mins; MEAN CORPUS HGB CONC 32.2 g/dL (32.0-36.0); MEAN CORPUSCULAR VOLUME 103.5 fL (80-100); PLATELET COUNT 244 10/3/uL (150-400); WHITE BLOOD CELLS 15.7 10/3/uL (4.5-10.5)
[2016-12-31 19:18] LABS: MANUAL DIFF NO %
[2016-12-31 19:23] LABS: INTERNATIONAL NORMAL RATI 1.3 UNITS (-); PARTIAL THROMBO TIME 36.9 SEC (22.5-37.2); PROTIME (NOT ORD) 16.3 SEC (12.0-14.5)
[2016-12-31 19:41] LABS: ALBUMIN 2.6 G/DL (3.5-5.0); ALKALINE PHOSPHATASE 98 U/L (45-117); CALCIUM, SERUM 8.8 MG/DL (8.5-10.4); CHLORIDE, SERUM 103 MMOL/L (96-112); GFR AFRICAN AMERICAN 13 ML/MIN (>=60); GFR NON AFRICAN AMERICAN 11 ML/MIN (>=60); POTASSIUM, SERUM 3.8 MMOL/L (3.5-5.3); SGOT(AST) 26 U/L (5-40); SGPT(ALT) 13 U/L (5-65); SODIUM, SERUM 137 MMOL/L (135-148); TOTAL BILIRUBIN 0.5 MG/DL (0-1.2)
[2016-12-31 19:44] LABS: A/G RATIO 0.5 (0.7-1.9); BUN (BLOOD UREA NITROGEN) 51 MG/DL (6-23); CO2 (CARBON DIOXIDE) 27 MMOL/L (24-34); GLOBULIN 5.2 G/DL (2.5-4.1); GLUCOSE, SERUM 94 MG/DL (60-99); TOTAL PROTEIN 7.8 G/DL (6.0-8.5)
[2016-12-31 19:46] LABS: TROPONIN I 0.13 NG/ML (<0.05)
[2016-12-31] MEDS ORDERED: NITROII30C TOP ×2 (21:38→22:37)
[2016-12-31 22:08] LABS: LACTATE 0.7 MMOL/L (0.3-2.4)
[2016-12-31] MEDS ORDERED: ASAB PO (22:30)
[2016-12-31] MEDS ORDERED: BUM2 PO (22:31)
[2016-12-31] MEDS ORDERED: COREG6 PO (22:33)
[2016-12-31] MEDS ORDERED: LEVOTHYROXIN75 MCG PO (22:35)
[2016-12-31] MEDS ORDERED: FERROUS SULF325 M1 PO (22:35)
[2016-12-31] MEDS ORDERED: LIDODERM TOP (22:37)
[2016-12-31] MEDS ORDERED: NOVOPENMIX SC ×2 (22:39→22:40)
[2016-12-31] MEDS ORDERED: ROXICODONE15 MG PO (22:43)
[2016-12-31] MEDS ORDERED: PAX10 PO (22:43)
[2016-12-31] MEDS ORDERED: VITAMIN D31000 UNIT PO (22:51)
[2016-12-31] MEDS ORDERED: PROTONIX PO (22:51)
[2016-12-31] MEDS ORDERED: SPIRO25 PO (22:51)
[2017-01-01 06:03] LABS: BASOPHILS 0.1 %; BASOPHILS ABSOLUTE 0.02 10/3/uL (0.0-0.16); HEMATOCRIT 28.6 % (36.0-48.0); IMMATURE GRANULOCYTES 0.5 %; IMMATURE GRANULOCYTES ABSOLUTE 0.07 10/3/uL (0.0-0.11); LYMPHOCYTES 12.1 %; LYMPHOCYTES ABSOLUTE 1.78 10/3/uL (0.67-4.30); MEAN CORPUS HGB CONC 31.5 g/dL (32.0-36.0); MEAN CORPUSCULAR HEMOGLOB 32.7 pg (26.0-34.0); MEAN PLATELET VOLUME 8.8 fL (9.2-13.0); MONOCYTES 8.9 %; MONOCYTES ABSOLUTE 1.31 10/3/uL (0.21-1.20); NEUTROPHILS 76.4 %; NEUTROPHILS ABSOLUTE 11.22 10/3/uL (2.02-8.40); PLATELET COUNT 224 10/3/uL (150-400); RBC DISTRIBUTION WIDTH 15.9 % (12.0-16.0); RED CELL COUNT 2.75 10/6/uL (4.0-5.6); WHITE BLOOD CELLS 14.7 10/3/uL (4.5-10.5)
[2017-01-01 06:04] LABS: MANUAL DIFF NO %
[2017-01-01 06:09] LABS: INTERNATIONAL NORMAL RATI 1.4 UNITS (-); PARTIAL THROMBO TIME 33.8 SEC (22.5-37.2); PROTIME (NOT ORD) 16.6 SEC (12.0-14.5)
[2017-01-01 06:31] LABS: A/G RATIO 0.5 (0.7-1.9); ALBUMIN 2.5 G/DL (3.5-5.0); ALKALINE PHOSPHATASE 81 U/L (45-117); BUN (BLOOD UREA NITROGEN) 49 MG/DL (6-23); CHLORIDE, SERUM 105 MMOL/L (96-112); CO2 (CARBON DIOXIDE) 21 MMOL/L (24-34); CREATININE 3.64 MG/DL (0.55-1.02); GFR AFRICAN AMERICAN 13 ML/MIN (>=60); GFR NON AFRICAN AMERICAN 11 ML/MIN (>=60); GLOBULIN 4.9 G/DL (2.5-4.1); GLUCOSE, SERUM 124 MG/DL (60-99); POTASSIUM, SERUM 3.7 MMOL/L (3.5-5.3); SGOT(AST) 23 U/L (5-40); SGPT(ALT) 13 U/L (5-65); SODIUM, SERUM 138 MMOL/L (135-148); TOTAL BILIRUBIN 0.4 MG/DL (0-1.2); TOTAL PROTEIN 7.4 G/DL (6.0-8.5); TROPONIN I 0.13 NG/ML (<0.05)
[2017-01-01 06:45] LABS: PROCALCITONIN 0.65 ng/mL (<0.5)
[2017-01-01 10:29] LABS: ASCORBIC ACID (UR NOT ORDER) NEG (NEG); BILIRUBIN, URINE NEGATIVE (NEG); KETONE, URINE NEGATIVE (NEG); LEUKOCYTE ESTERASE(NOT OR TRACE (NEG); WBC (NOT ORDERED) (RFLEX) 4 (0-5)
[2017-01-02 05:29] LABS: BASOPHILS 0.2 %; BASOPHILS ABSOLUTE 0.02 10/3/uL (0.0-0.16); EOSINOPHILS 3.3 %; EOSINOPHILS ABSOLUTE 0.31 10/3/uL (0.0-0.53); HEMATOCRIT 25.6 % (36.0-48.0); HEMOGLOBIN 8.2 g/dL (12.0-16.0); IMMATURE GRANULOCYTES 0.4 %; IMMATURE GRANULOCYTES ABSOLUTE 0.04 10/3/uL (0.0-0.11); LYMPHOCYTES 19.1 %; LYMPHOCYTES ABSOLUTE 1.78 10/3/uL (0.67-4.30); MANUAL DIFF NO %; MEAN CORPUSCULAR HEMOGLOB 32.8 pg (26.0-34.0); MEAN CORPUSCULAR VOLUME 102.4 fL (80-100); MEAN PLATELET VOLUME 9.3 fL (9.2-13.0); MONOCYTES ABSOLUTE 1.02 10/3/uL (0.21-1.20); NEUTROPHILS ABSOLUTE 6.13 10/3/uL (2.02-8.40); PLATELET COUNT 212 10/3/uL (150-400); RBC DISTRIBUTION WIDTH 15.6 % (12.0-16.0); WHITE BLOOD CELLS 9.3 10/3/uL (4.5-10.5)
[2017-01-02 05:43] LABS: ALBUMIN 2.1 G/DL (3.5-5.0); CALCIUM, SERUM 8.6 MG/DL (8.5-10.4); CHLORIDE, SERUM 109 MMOL/L (96-112); CO2 (CARBON DIOXIDE) 23 MMOL/L (24-34); CREATININE 3.73 MG/DL (0.55-1.02); GFR AFRICAN AMERICAN 13 ML/MIN (>=60); GFR NON AFRICAN AMERICAN 11 ML/MIN (>=60); GLUCOSE, SERUM 133 MG/DL (60-99); POTASSIUM, SERUM 4.1 MMOL/L (3.5-5.3); SODIUM, SERUM 139 MMOL/L (135-148)
[2017-01-02 05:45] LABS: BUN (BLOOD UREA NITROGEN) 56 MG/DL (6-23)
[2017-01-03 04:07] LABS: BASOPHILS 0.2 %; BASOPHILS ABSOLUTE 0.02 10/3/uL (0.0-0.16); EOSINOPHILS 4.7 %; EOSINOPHILS ABSOLUTE 0.39 10/3/uL (0.0-0.53); HEMATOCRIT 26.1 % (36.0-48.0); HEMOGLOBIN 8.3 g/dL (12.0-16.0); IMMATURE GRANULOCYTES 0.7 %; IMMATURE GRANULOCYTES ABSOLUTE 0.06 10/3/uL (0.0-0.11); LYMPHOCYTES 21.1 %; LYMPHOCYTES ABSOLUTE 1.77 10/3/uL (0.67-4.30); MEAN CORPUS HGB CONC 31.8 g/dL (32.0-36.0); MEAN CORPUSCULAR HEMOGLOB 33.1 pg (26.0-34.0); MEAN PLATELET VOLUME 8.8 fL (9.2-13.0); MONOCYTES 8.8 %; MONOCYTES ABSOLUTE 0.74 10/3/uL (0.21-1.20); NEUTROPHILS 64.5 %; PLATELET COUNT 233 10/3/uL (150-400); RBC DISTRIBUTION WIDTH 15.5 % (12.0-16.0); RED CELL COUNT 2.51 10/6/uL (4.0-5.6); WHITE BLOOD CELLS 8.4 10/3/uL (4.5-10.5)
[2017-01-03 04:10] LABS: MANUAL DIFF NO %
[2017-01-03 04:17] LABS: BUN (BLOOD UREA NITROGEN) 53 MG/DL (6-23); CALCIUM, SERUM 8.5 MG/DL (8.5-10.4); CHLORIDE, SERUM 107 MMOL/L (96-112); CREATININE 3.66 MG/DL (0.55-1.02); GFR AFRICAN AMERICAN 13 ML/MIN (>=60); GFR NON AFRICAN AMERICAN 11 ML/MIN (>=60); SODIUM, SERUM 143 MMOL/L (135-148)
[2017-01-03 04:19] LABS: CO2 (CARBON DIOXIDE) 28 MMOL/L (24-34); GLUCOSE, SERUM 100 MG/DL (60-99)
[2017-01-03 04:47] LABS: PROCALCITONIN 0.73 ng/mL (<0.5)
[2017-01-04 05:34] LABS: BUN (BLOOD UREA NITROGEN) 51 MG/DL (6-23); CALCIUM, SERUM 9.1 MG/DL (8.5-10.4); CHLORIDE, SERUM 109 MMOL/L (96-112); CO2 (CARBON DIOXIDE) 26 MMOL/L (24-34); CREATININE 3.48 MG/DL (0.55-1.02); GFR AFRICAN AMERICAN 14 ML/MIN (>=60); GFR NON AFRICAN AMERICAN 12 ML/MIN (>=60); GLUCOSE, SERUM 87 MG/DL (60-99); PHOSPHORUS, SERUM 3.1 MG/DL (2.5-4.5); POTASSIUM, SERUM 4.4 MMOL/L (3.5-5.3); SODIUM, SERUM 143 MMOL/L (135-148)
[2017-01-04 06:03] LABS: PROCALCITONIN 0.72 ng/mL (<0.5)
[2017-01-05 05:22] LABS: BUN (BLOOD UREA NITROGEN) 52 MG/DL (6-23); CALCIUM, SERUM 8.7 MG/DL (8.5-10.4); CHLORIDE, SERUM 107 MMOL/L (96-112); CO2 (CARBON DIOXIDE) 26 MMOL/L (24-34); CREATININE 3.47 MG/DL (0.55-1.02); GFR AFRICAN AMERICAN 14 ML/MIN (>=60); GFR NON AFRICAN AMERICAN 12 ML/MIN (>=60); POTASSIUM, SERUM 4.8 MMOL/L (3.5-5.3); SODIUM, SERUM 142 MMOL/L (135-148)
[2017-01-05 05:23] LABS: GLUCOSE, SERUM 148 MG/DL (60-99)
[2017-01-05] MEDS ORDERED: CEFT5 PO (10:19)
[2017-01-13] MEDS ORDERED: NOVOLOG SC ×2 (14:42→14:45)
[2017-01-13] MEDS ORDERED: BUM1 PO (14:49)
[2017-02-21] MEDS ORDERED: *UNABLE1 (20:33)
[2017-02-21] MEDS ORDERED: ROXICODONE15 MG PO (20:41)
[2017-02-21] MEDS ORDERED: COREG6 PO (20:42)
[2017-02-21] MEDS ORDERED: BUM2 PO ×2 (20:42→20:43)
[2017-02-21] MEDS ORDERED: NITROII30C TOP (20:42)
[2017-02-21] MEDS ORDERED: LEVOTHYROXIN75 MCG PO (20:42)
[2017-02-21] MEDS ORDERED: NOVOPENMIX SC (20:42)
[2017-02-21] MEDS ORDERED: APRES25 PO (20:43)
[2017-02-21] MEDS ORDERED: ISORDIL20 PO (20:43)
[2017-02-21] MEDS ORDERED: KEPPRA250 PO (20:43)
[2017-02-21] MEDS ORDERED: FERROUS SULF325 M1 PO (20:44)
[2017-02-21] MEDS ORDERED: HALF81 PO (20:44)
[2017-02-21] MEDS ORDERED: MULTIVIT/MIN PO (20:44)
[2017-02-21] MEDS ORDERED: VITAMIN D2000 UNIT PO (20:44)
[2017-03-20] MEDS ORDERED: KDUR10 PO (10:37)
[2017-03-20] MEDS ORDERED: PROTONIX PO (10:37)
[2017-04-03] MEDS ORDERED: NITROSTAT0.4 MG SL (20:14)
[2017-04-03] MEDS ORDERED: LIDODERM TOP (20:15)
[2017-04-03] MEDS ORDERED: ATV1 PO (20:15)
[2017-05-03] MEDS ORDERED: PRIN2.5 PO (11:51)
[2017-05-03] MEDS ORDERED: [UNRECOGNIZED DRUG - CODE] TOP (11:53)
[2017-05-03] MEDS ORDERED: RENA-VITE PO (11:55)
[2017-05-03] MEDS ORDERED: T PO (11:56)
[2017-05-03] MEDS ORDERED: ZOFRAN ODT4 MG PO (11:57)
[2017-05-03] MEDS ORDERED: OXYIR5 MG PO (12:00)
[2017-05-03] MEDS ORDERED: [UNRECOGNIZED DRUG - CODE] T (12:04)
[2017-05-03] MEDS ORDERED: INSTA GLUCOSE PO (12:10)
== END 2017-01-05 12:49 | disposition home health service (06) | DRG 871 ==
LOC: ER 17:30 → 6NO 21:32
PROVIDERS: Emergency Medicine; Hospitalist; Internal Medicine
DX: A41.9 Sepsis, unspecified organism (principal); J18.9 Pneumonia, unspecified organism; J96.01 Acute respiratory failure with hypoxia; I50.23 Acute on chronic systolic (congestive) heart failure; N18.5 Chronic kidney disease, stage 5; I24.8 Other forms of acute ischemic heart disease; E11.22 Type 2 diabetes mellitus with diabetic chronic kidney disease; E11.649 Type 2 diabetes mellitus with hypoglycemia without coma; I27.2 Other secondary pulmonary hypertension; E11.65 Type 2 diabetes mellitus with hyperglycemia; I70.1 Atherosclerosis of renal artery; I73.9 Peripheral vascular disease, unspecified; I25.10 Atherosclerotic heart disease of native coronary artery without angina pectoris; G89.29 Other chronic pain; E78.5 Hyperlipidemia, unspecified; K21.9 Gastro-esophageal reflux disease without esophagitis; K21.0 Gastro-esophageal reflux disease with esophagitis; D47.2 Monoclonal gammopathy; E55.9 Vitamin D deficiency, unspecified; I89.0 Lymphedema, not elsewhere classified; M54.9 Dorsalgia, unspecified; F32.9 Major depressive disorder, single episode, unspecified; D64.9 Anemia, unspecified; S31.103A Unspecified open wound of abdominal wall, right lower quadrant without penetration into peritoneal cavity, initial encounter; Z95.810 Presence of automatic (implantable) cardiac defibrillator; Z87.11 Personal history of peptic ulcer disease; Z95.1 Presence of aortocoronary bypass graft; Z95.5 Presence of coronary angioplasty implant and graft; Z79.4 Long term (current) use of insulin; Z87.01 Personal history of pneumonia (recurrent)
CPT/HCPCS: 36600; 71010; 71020; 80048; 80053; 80069; 81001; 82330; 82803; 82947; 82962; 83605; 83735; 83880; 84132; 84145; 84295; 84443; 84484; 85014; 85025; 85610; 85730; 87040; 87077; 87186; 87449; 93005; 94640; 96374; 96375; 97162-GP; 97530-GP; 99285; A9270-GY; G8978-CL-GP; G8979-CJ-GP; J0456; J3370

== ENCOUNTER 2017-01-13 15:05 | Inpatient (IN) | payer MEDICARE, OTHER ==
--- NOTE | ~2017-01-13 | HP ---
History And Physical [address] [place]. [address] NAME: MARCOS PHILLIPS : 39 STATUS : ADM IN [facility]#: [id number] AGE: 81 ADM/REG DATE : 01/13/17 MR#: [id number] REPORT SERV DATE: 01/13/17 DICTATED BY: MIO CHARLES DATE: 01/13/17 REPORT STATUS : Draft TRANSCRIBED BY: MODL DATE: 01/13/17 DATE OF ADMISSION: 01/13/2017 POINT OF ENTRY: [facility] Emergency Department. PRIMARY WRECKING MECHANIC: Dr. Wright. PRIMARY HARVEST WORKER: Dr. Diez. CHIEF COMPLAINT: Chest pain and shortness of breath. HISTORY OF PRESENT ILLNESS: Ms. Phillips is a 81-year-old female with a history of chronic kidney disease stage [address] Wright, chronic systolic congestive heart failure with ejection fraction of 30%, as well as pulmonary hypertension, who presents to the emergency department today with reports of a one-day history of chest pain and shortness of breath. The patient was recently admitted to the Hospitalist Service from 12/31/2016 through 01/05/2017 for right upper lobe pneumonia as well as acute on chronic systolic congestive heart failure. The patient was discharged on 01/05/2017 with a course of oral antibiotics, which she states she has completed. The patient states that up until today, she had been doing well, although admittedly had not been getting out of bed or out of her recliner much over the last week. Today, the patient noted that she was very short of breath with exertion. Is also having some sharp, stabbing intermittent left-sided chest pain with radiation to the back. She denies any fevers, night sweats, chills, cough, sputum production, lower extremity edema, but does report some occasional wheezing. Of note, she does report compliance with her outpatient antibiotics as well as her home Bumex. The patient has been instructed by her primary marine electrician to not give herself any insulin unless her sugar is greater than 300. She did note an episode of hyperglycemia with a sugar of 400 and something this week, for which she gave herself 25 units of subcu insulin. She states that her sugars for the past two days have been in the 200 to 300 range, but again, has not given herself any insulin secondary to her primary marine electrician's orders. Initial evaluation in the emergency department is notable for a chest x-ray that has not been read by Radiology, but is concerning for a possible right upper as well as lower lobe pneumonia versus atelectasis. Labs are notable for a white count of 11.6. Her troponin is 0.12. Creatinine is 4.01 with a potassium of 5.3 and a blood sugar of 477. Of note, a D- dimer was also checked and it was elevated at 4.42. She was given some IV antibiotics and admitted to the Hospitalist Service. In addition, she primarily complains of shortness of breath with dyspnea on exertion as well as intermittent episodes of chest pain, but otherwise, again like I said, denies any fevers, History And Physical [address] [place]. [address] NAME: MARCOS PHILLIPS : 37 STATUS : ADM IN [facility]#: [id number] AGE: 81 ADM/REG DATE : 01/13/17 MR#: [id number] REPORT SERV DATE: 01/13/17 DICTATED BY: MIO CHARLES DATE: 01/13/17 REPORT STATUS : Draft TRANSCRIBED BY: SEBASTIAN DATE: 01/13/17 night sweats, chills, cough, sputum production, abdominal pain, nausea, vomiting, diarrhea, constipation, dysuria, lower extremity edema, melena, hematochezia, hemoptysis, or hematemesis. Comprehensive review of systems otherwise negative unless listed in history of present illness. PREVIOUS MEDICAL HISTORY: 1. Chronic kidney disease stage 5, baseline creatinine approximately 3.4 to 3.6, followed by Dr. Wright. 2. Chronic systolic congestive heart failure with ejection fraction of approximately 30%. 3. Pulmonary hypertension. 4. Coronary artery disease, status post coronary artery bypass grafting. 5. Insulin-dependent diabetes mellitus type 2, hemoglobin A1c of 7.5. 6. Chronic lower back pain. 7. Status post AICD pacemaker insertion. 8. Peripheral arterial disease with evidence of renal artery stenosis as well as carotid arterial disease. 9. Chronic anemia. 10.Hypothyroidism. 11.Chronic troponin elevation. 12.Recent admission for right upper lobe pneumonia. 13.MGUS. 14.Gastroesophageal reflux disease and peptic ulcer disease. 15.History of GI bleed. SURGICAL HISTORY: 1. Coronary artery bypass grafting. 2. x3. 3. Miky fundoplication. 4. AICD pacemaker insertion. 5. C-spine surgery. 6. Cholecystectomy. 7. Bilateral rotator cuff. ALLERGIES: ARE TO PROPOXYPHENE, STADOL, SULFA DRUGS, CODEINE, BUTORPHANOL, AND MORPHINE. HOME MEDICATIONS: 1. Aspirin 81 mg daily. 2. Bumex 1 mg daily p.r.n. 3. Bumex 2 mg daily. 4. Carvedilol 12.5 mg b.i.d. 5. Ceftin 500 mg b.i.d., therapy completed. 6. Vitamin D 4000 units daily. 7. Ferrous sulfate 325 mg daily. 8. Insulin 35 units with breakfast for sugars greater than 300. 9. Insulin 25 units p.r.n. for sugars greater than 300. 10.Levothyroxine 75 mcg daily. 11.Lidocaine topical patch daily p.r.n. History And Physical [address] [address] NAME: MARCOS PHILLIPS : 37 STATUS : ADM IN PAT#: [id number] AGE: 81 ADM/REG DATE : 01/13/17 MR#: [id number] REPORT SERV DATE: 01/13/17 DICTATED BY: MIO CHARLES DATE: 01/13/17 REPORT STATUS : Draft TRANSCRIBED BY: SEBASTIAN DATE: 01/13/17 12.Nitroglycerin transdermal patch 0.6 mg/hour q.h.s. 13.Roxicodone 15 mg q.6 hours p.r.n. 14.Protonix 40 mg daily. 15.Paroxetine 10 mg daily. 16.Aldactone 12.5 mg daily. SOCIAL HISTORY: She denies any tobacco, alcohol, or illicits. FAMILY MEDICAL HISTORY: Coronary artery disease in both her parents as well as siblings as well as diabetes in siblings. LABORATORY DATA AND IMAGIN. White count is 11.6, hemoglobin 9.4, hematocrit is 29.5, platelet count is 245, INR 1.1. 2. Sodium is 135, potassium 5.3, chloride 99, carbon dioxide 27, BUN 68, creatinine 4.01, glucose is 477, calcium is 9.2, magnesium is 2.2. 3. Troponin 0.12. BNP is 578.8. 4. Lactic acid 1.0. 5. D-dimer 4.42. 6. EKG per my review shows atrial paced rhythm. No evidence of any acute ischemia, infarction, or T-wave changes. 7. Chest x-ray per my review shows right lower lobe and upper lobe consolidation concerning for atelectasis versus infiltrate. Unable to visualize the left base secondary to pacemaker. 8. ABG; pH is 7.39, pCO2 is 42, PO2 is 61, bicarbonate is 25, saturating 89% on room air. PHYSICAL EXAMINATION: GENERAL: The patient is awake, alert, in no acute distress, resting comfortably in bed. She is a well-developed, well-nourished, elderly female. No family is at bedside. HEENT: Atraumatic, normocephalic. Moist mucous membranes. Pupils equal, round, reactive to light and accommodation. Extraocular eye movements intact. No scleral icterus. NECK: No jugular venous distention. No carotid bruits. CARDIAC: Regular rate and rhythm. No murmurs or gallops. Normal S1, S2. LUNGS: Decreased breath sounds in bilateral bases with some inspiratory rhonchi versus crackles in bilateral bases. In no acute distress. ABDOMEN: Soft, nontender, nondistended. Good bowel sounds. No rebound, guarding, or rigidity. EXTREMITIES: Warm and perfused with trace pedal edema. Does have some serous-filled blisters in the calcaneal region bilaterally. SKIN: Warm and dry. PSYCH: Affect appropriate. NEURO: Alert and oriented x3. Cranial nerves 2 through 12 grossly intact. Speech is normal. Gait not assessed. ASSESSMENT AND PLAN: Ms. Phillips is a 81-year-old female, who presents with a one-day history of shortness of breath and chest pain, and found evidence concerning for healthcare- associated pneumonia. History And Physical [address] [address] NAME: MARCOS PHILLIPS : 37 STATUS : ADM IN [facility]#: [id number] AGE: 81 ADM/REG DATE : 01/13/17 MR#: [id number] REPORT SERV DATE: 01/13/17 DICTATED BY: MIO CHARLES DATE: 01/13/17 REPORT STATUS : Draft TRANSCRIBED BY: MODL DATE: 01/13/17 PROBLEM LIST: 1. Healthcare-associated pneumonia. 2. Acute hypoxic respiratory failure. 3. Elevated troponin level. 4. Chest pain. 5. Elevated D-dimer level. 6. Chronic systolic congestive heart failure. 7. Chronic kidney stage 5. 8. Hyperkalemia. 9. Insulin-dependent diabetes mellitus type 2 with hyperglycemia. PLAN: 1. Healthcare-associated pneumonia. Per my review, the chest x-ray is concerning for atelectasis versus possible infiltrate. Given the patient's symptoms as well as white count and lack of gross volume overload, we will empirically treat for healthcare- associated pneumonia with IV vancomycin as well as cefepime, follow up blood cultures, try to obtain sputum culture as well as urinary antigens. We will check a CT scan of the chest to better visualize her lung piper. 2. Chest pain with elevated troponin level. The patient has chronically elevated troponin level; however, she does have known history of coronary artery disease. EKG is nonischemic. We will continue to trend out cardiac enzymes. 3. Chronic kidney disease stage 5. The patient's creatinine is slightly above her recent lab values from recent admission. We will continue the patient's home diuretics, but not increase them at this time. We will consult Nephrology for assistance. 4. Hyperkalemia. No EKG changes at this time. We will place the patient on cardiac telemetry monitoring holding the patient's Aldactone. I suspect this will all correct nicely when we correct her hyperglycemia with IV insulin. We will give some calcium gluconate as well. 5. Chronic systolic congestive heart failure. The patient currently appears euvolemic at this time. She also has a chronically elevated BNP level, I think, secondary to her CHF as well as CKD. We will continue the patient's home Bumex, but not increase at this time. 6. Elevated D-dimer level. This was checked inadvertently by the ER physicians. However, given her level plus chest pain in the setting of shortness of breath and hypoxia, I think this needs to be further pursued with a stat V/Q scan of the chest given her CKD. 7. Acute hypoxic respiratory failure likely secondary to healthcare-associated pneumonia, as again, I do not appreciate any evidence of gross volume overload, we will try to wean as tolerated. 8. Insulin-dependent diabetes mellitus type 2 with hyperglycemia. Unclear what exactly her home insulin regimen is. We will recheck a hemoglobin A1c. Consult diabetes education for assistance. We will give some low-dose IV insulin here, as I am afraid that she may not tolerate large doses given her advanced renal failure. We will place the patient on a level 3 insulin sliding scale. 9. Leukocytosis, again likely secondary to healthcare-associated pneumonia. We will check urinalysis as well. Blood cultures have been obtained. 10.DVT prophylaxis. Heparin subcu. History And Physical [address] [address] NAME: MARCOS PHILLIPS : 37 STATUS : ADM IN PAT#: [id number] AGE: 81 ADM/REG DATE : 01/13/17 MR#: [id number] REPORT SERV DATE: 01/13/17 DICTATED BY: MIO CHARLES DATE: 01/13/17 REPORT STATUS : Draft TRANSCRIBED BY: SEBASTIAN DATE: 01/13/17 CODE STATUS: The patient wished to be full code. KOBI/SEBASTIAN Mio Charles MD / [id number] CC: MD Froylan Staton M.D. Donald Franklin Jr, M.D. James Hoback Jr., M.D.
--- NOTE | ~2017-01-13 | CN ---
Consultation Report [facility] [address] [place]. [address] NAME: MARCOS ESPINOZA : 39 STATUS : ADM IN [facility]#: [id number] AGE: 81 ADM/REG DATE : 01/13/17 MR#: [id number] REPORT SERV DATE: 01/17/17 DICTATED BY: DATE: REPORT STATUS : Draft TRANSCRIBED BY: MODL DATE: 01/17/17 NEUROLOGY CONSULTATION DATE OF CONSULTATION: 01/17/2017 REASON FOR CONSULT: Possible stroke. HISTORY OF PRESENT ILLNESS: This is a 81-year-old female who presented to [facility] on 01/13/2017 secondary to shortness of breath, was noted to have possible pneumonia and started treatment. Patient was noted to have complained of nausea at roughly 0740 hours, was noted to have problem talking, complaints of dysarthria, as well as repeating the same answer over and over again. Apparently, some of her problems might have continued from overnight. The patient's reports that when the patient was initially presented to [facility] and during her hospital stay, the patient does not appear to have any problem talking. The patient cannot verbalize if any weakness was noted. 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 The patient does not have any apparent recent fever. Unfortunately, the patient does have a recent GI bleed in 10/2006 requiring one unit of blood transfusion by discharge summary. The bleeding source was found by endoscopy and the patient's GI bleed subsequently stabilized. The patient was able to be discharged home. Patient also has not received any sedating medication. No benzodiazepine was otherwise provided. Patient did receive Zofran sublingual in the morning secondary to nausea. PAST MEDICAL HISTORY: The patient has multiple past medical history including chronic kidney disease, stage 5. The patient apparently is not a dialysis candidate for unclear reasons. The patient also has had a history of chronic systolic congestive heart failure with EF of 30%; history of pulmonary hypertension; coronary artery disease, status post bypass surgery; as well as insulin-dependent diabetes; chronic lower back pain; AICD pacemaker placement secondary to congestive heart failure; peripheral arterial disease with renal artery stenosis and carotid artery disease; chronic anemia; hypothyroidism; chronic troponin elevation; MGUS. Patient was also noted to have a history of prior pneumonia. The patient has had GI bleed in 10/2016 requiring one unit of blood transfusion, history of peptic ulcer disease, and gastroesophageal reflux disease. ALLERGIES: ALSO THE PATIENT NOTED TO HAVE MULTIPLE DRUG ALLERGIES INCLUDING PROPOXYPHENE, STADOL, SULFA DRUGS, CODEINE, BUTORPHANOL, WELL MORPHINE. SOCIAL HISTORY: No current tobacco, alcohol, or recreational drug usage. FAMILY HISTORY: Significant for coronary artery disease and diabetes. REVIEW OF SYSTEMS: Unable to be obtained due to patient's difficulties with language. Consultation Report [facility] [address] [place]. [address] NAME: MARCOS ESPINOZA : 39 STATUS : ADM IN [facility]#: [id number] AGE: 81 ADM/REG DATE : 01/13/17 MR#: [id number] REPORT SERV DATE: 01/17/17 DICTATED BY: DATE: REPORT STATUS : Draft TRANSCRIBED BY: SEBASTIAN DATE: 01/17/17 MEDICATIONS: The patient's current hospital medications consist of aspirin, Bumex, Coreg, ferrous sulfate, heparin, Levemir, Mycostatin, nitroglycerin patch, Lidoderm patch, NovoLog, Paxil, Protonix, Synthroid, vitamin D, as well as Zofran p.r.n. Patient was given last dose of oxycodone at roughly 0529 hours on 01/16/2017. PHYSICAL EXAMINATION: VITAL SIGNS: At time of evaluation, patient was noted to have overnight vital signs with T- max of 98.3, heart rate of 64-93, respiration of 18 to 22, and blood pressure of 117 to 172 over 56 to 65. GENERAL: The patient is well developed, well nourished, in no acute distress. CARDIOVASCULAR: Regular rate and rhythm. No carotid bruits were otherwise auscultated. PULMONARY: Clear to auscultation bilaterally. NEUROLOGICAL: Generally, patient is alert oriented to person, place, as well as month, but not to year. Verbal perseverance was noted at time of evaluation. Patient was also noted to have psychomotor retardation and decreased attention span. Follows mostly simple commands, has some problems with more complex commands. Mild dysarthria was noted at time of evaluation. Cranial nerves 2 to 12. Pupils equal, round, and reactive to light. Horizontal eye movement was noted. Symmetrical facial expression was noted and reports a symmetrical facial sensation. The patient was noted to have midline tongue at time of evaluation. Normal palatal movement. Mild decreased hearing in bilateral ears. The patient does demonstrate myoclonus jerk in bilateral upper extremity as well as right lower extremity at the time of evaluation with the patient noted to have decreased ability to maintain arm and leg elevation against gravity. 4/5 strength bilaterally. Also noted to have sensation in upper and lower extremities. Deep tendon reflexes were elevated throughout. Gait was not evaluated secondary to acute symptoms. LABORATORY STUDIES: Demonstrated white blood cell count of 7.5, hemoglobin of 8.7, hematocrit of 27.6, platelet count of 220. Chemistry panel: Sodium 140, potassium 4.5, chloride 105, bicarb 28, BUN of 59, creatinine of 3.61, glucose of 104, calcium of 8.9. Patient's last procalcitonin was 0.31. CT scan of the brain otherwise demonstrated no acute process. At time of evaluation, generalized atrophy was seen deep white matter diseases was also noted during a CT scan. IMPRESSION: 1. Dysarthria. 2. Encephalopathy with the symptom noted by nursing staff around 0740 when patient complained of nausea. Unfortunately, no clear last time of normal was established. The patient thus demonstrated dysarthria as well as verbal perseverance, as well as diffuse myoclonus concerning for component of metabolic etiology. was not offered secondary to recent GI bleeding, requiring transfusion in 10/2016 as well as time of her last normal unknown. We will check laboratory study as well as EEG. Will repeat CT scan of the brain on 01/18/2017. Unfortunately, patient is unable to tolerate MRI secondary to AICD placement. Consultation Report [facility] [id number] [place]. [address] NAME: MARCOS ESPINOZA : 39 STATUS : ADM IN [facility]#: [id number] AGE: 81 ADM/REG DATE : 01/13/17 MR#: [id number] REPORT SERV DATE: 01/17/17 DICTATED BY: DATE: REPORT STATUS : Draft TRANSCRIBED BY: MODL DATE: 01/17/17 RECOMMENDATION: 1. CT scan of the brain on 01/18/2017. 2. Ammonia, vitamin B12, folate, TSH, free T4 laboratory stat. 3. EEG. 4. Avoid sedation. 5. We will check ABG. 6. Fasting lipid panel as well as hemoglobin A1c in the morning. 7. Urinalysis. 8. Echocardiogram and carotid Doppler study. [facility] Pablo Tejada MD / [id number] CC: Tomas Abbott M.D. Froylan Snow M.D.
--- NOTE | ~2017-01-13 | EEG ---
Electroencephalogram [facility] [address] [place]. [address] NAME: MARCOS ESPINOZA : 39 STATUS : ADM IN PAT#: [id number] AGE: 81 ADM/REG DATE : 01/13/17 MR#: [id number] REPORT SERV DATE: 01/17/17 DICTATED BY: DATE: REPORT STATUS : Draft TRANSCRIBED BY: MODL DATE: 01/17/17 CLINICAL INDICATION: Encephalopathy myoclonus. DESCRIPTION: This EEG was performed using 10/20 electrode placement system. During the EEG study, the patient was noted to have generalized slowing predominant occipital rhythm of 5 to 6 Hz. The patient, in addition, was noted to have frequent T5 rhythmic activities during the EEG evaluation. Photic stimulation was performed. No clear photic driving response was seen. Hyperventilation was not performed secondary to the patient's underlying medical condition. During the EEG study, generalized spike and wave discharge at times was also noted the patient achieved drowsy state during the EEG evaluation. The patient, in addition, was also noted to have periods of suppressed brain activity, most of the time it occurred in the bilateral parietal area although at times also noted to be generalized. No clear electrographic seizure was otherwise noted during the EEG evaluation. INTERPRETATION: This EEG study obtained during awake and drowsy state may be considered abnormal for: 1. Generalized slowing. 2. Presence of rhythmic activity in the left temporal area. 3. Periods of suppressed brain activity most predominantly seen in bilateral parietal area, although at times appeared to be generalized. 4. Generalized spike and wave discharge consistent with myoclonus. The patient's EEG findings consistent with encephalopathy and possible underlying seizure activities. Clinical correlation as well as the imaging study correlation is recommended. [facility] Pablo Tejada MD / [id number] CC: Juan Tatum M.D.
--- NOTE | ~2017-01-13 | CN ---
Consultation Report [place] [id number] [facility] [place]. [address] NAME: MARCOS PHILLIPS : 39 STATUS : ADM IN [facility]#: [id number] AGE: 81 ADM/REG DATE : 01/13/17 MR#: [id number] REPORT SERV DATE: 01/15/17 DICTATED BY: KITTY SALCIDO DATE: 01/15/17 REPORT STATUS : Draft TRANSCRIBED BY: MODL DATE: 01/15/17 PULMONARY CONSULTATION DATE OF CONSULTATION: 01/15/2017 REASON FOR CONSULTATION: Dyspnea and hypoxia. HISTORY OF PRESENT ILLNESS: Ms. Phillips is a 81-year-old white female, lifelong nonsmoker, who is status post recent treatment for community-acquired pneumonia with received Rocephin and azithromycin, who was readmitted five days after her discharge from this hospital complaining of gradually increasing shortness of breath and hypoxia as well as persistent nonproductive cough. CT scan of the chest this admission revealed new patchy nodular consolidation in the right upper lobe and both lower lobes as well as ground-glass opacities in both upper lobes. She is being treated with Maxipime and vancomycin for presumed healthcare-associated pneumonia. Pulmonary was consulted for review of the therapeutic regimen and further recommendations. The patient states she feels significantly better since admission after treatment with antibiotics as described along with supplemental oxygen at a flow rate of 2 L/minute. She also has been receiving bronchodilators. She has a long history of congestive heart failure, chronic kidney disease, and chronic lower extremity edema. She has not noted a recent change in her edema or urine output. She does feel her shortness of breath and cough have improved since admission as described above. PAST MEDICAL HISTORY: 1. Recent admission and treatment with Rocephin and azithromycin for community-acquired pneumonia. 2. Congestive heart failure. 3. Chronic kidney disease. 4. Pulmonary hypertension, per available records though the patient is unaware. 5. Diabetes mellitus. 6. Coronary artery disease-status post CABG. 7. Chronic lower back pain. 8. Pacemaker/AICD. 9. Peripheral artery disease. 10.Carotid artery disease. 11.Renal artery stenosis. 12.Anemia. 13.Hypothyroidism. 14.GERD. 15.Prior GI bleed. 16. x3. 17.Miky fundoplication. 18.Previous cervical spine surgery. Consultation Report [address] [place]. [address] NAME: MARCOS PHILLIPS : 37 STATUS : ADM IN PAT#: [id number] AGE: 81 ADM/REG DATE : 01/13/17 MR#: [id number] REPORT SERV DATE: 01/15/17 DICTATED BY: KITTY SALCIDO DATE: 01/15/17 REPORT STATUS : Draft TRANSCRIBED BY: MODL DATE: 01/15/17 19.Bilateral rotator cuff surgery. 20.Cholecystectomy. 21.Monoclonal gammopathy of undetermined significance. 22.Recurrent urinary tract infection. 23.Chronic elevation of troponin. 24.Hyperlipidemia. 25.Depression/anxiety. FAMILY HISTORY: She denies a family history of pulmonary diseases. SOCIAL HISTORY: Ms. Phillips is a lifelong nonsmoker, though she has significant secondhand smoke exposure in the past-her parents and smoked. She denies ethanol intake, past/present drug use, occupational exposures, or chewing tobacco. She previously worked for [employer]. She is and has three children. MEDICATIONS: Outpatient and inpatient medications were reviewed and are as documented in the record. She denies ever having been on any type of inhalers. She had just completed antibiotic therapy with Ceftin 500 mg twice daily. ALLERGIES: 1. SULFA. 2. MORPHINE. 3. CODEINE. 4. PROPOXYPHENE. 5. BUTORPHANOL. REVIEW OF SYSTEMS: A 10-point system review was conducted and is remarkable for the symptoms as described in the history of present illness. As noted above, she has chronic lower extremity edema that is unchanged. She denies active GERD symptoms. She denies nasal symptoms. She denies symptoms of obstructive sleep apnea. She denies chest pain or chest discomfort: PHYSICAL EXAMINATION: VITAL SIGNS: Temperature 97.5 degrees, heart rate 68, blood pressure 139/63, respiratory rate 18, and oxygen saturation 98% on supplemental oxygen at a flow rate of 2 L/minute. GENERAL: Pleasant, elderly white female. Alert, oriented, no apparent distress. Sitting up in a chair and speaking in full sentences. HEENT: Normocephalic. Atraumatic. There is no scleral icterus. The conjunctivae are clear. The oropharynx is clear and dry. NECK: Supple. No JVD or lymphadenopathy is noted. LUNGS: There are faint bibasilar crackles. The lungs are otherwise clear to auscultation with no wheezing or rhonchi. HEART: Regular rate and rhythm. No ectopy is noted. ABDOMEN: Soft. Nontender. Nondistended. There are normal bowel sounds in all four quadrants. Consultation Report [place] [id number] [place]. [address] NAME: MARCOS PHILLIPS : 39 STATUS : ADM IN [facility]#: [id number] AGE: 81 ADM/REG DATE : 01/13/17 MR#: [id number] REPORT SERV DATE: 01/15/17 DICTATED BY: KITTY SALCIDO DATE: 01/15/17 REPORT STATUS : Draft TRANSCRIBED BY: SEBASTIAN DATE: 01/15/17 Bilateral extremities: There is 1+ edema in both lower extremities with the right being slightly worse than the left. There are associated stasis skin changes. There is no cyanosis or clubbing. NEUROLOGIC: A limited exam was found to be nonfocal. SKIN: No acute rashes are noted. LABORATORY RESULTS: Labs were reviewed and are as documented in the record. Notable labs include a white blood cell count of 11.6 on admission and 9.0 today. The BNP on admission was 578.8 with a procalcitonin of 0.31. The D-dimer was 4.42. Arterial blood gas on admission revealed a pH of 7.39, pCO2 of 42 and a pO2 of 61 on room air. IMAGIN. The V/Q scan done this admission revealed a low probability for pulmonary embolism. 2. The chest x-ray done this admission did not reveal any effusions or infiltrates. 3. A CT scan of the chest done at this admission revealed multiple stable lung nodules that have been present since 2007. There is one right upper lobe lung nodule that has increased in size from 2 to 3 mm when compared with the CT scan of the chest done in 2008. There is right upper lobe and bilateral lower lobe consolidation as well as bilateral upper lobe and right middle lobe ground-glass opacities. ASSESSMENT AND PLAN: 1. Ms. Phillips is a 81-year-old white female, nonsmoker, with congestive heart failure, chronic kidney disease, and an elevated BNP on admission, who was recently treated for community-acquired pneumonia. She was readmitted with increasing shortness of breath, and hypoxia. V/Q scan is low probability for pulmonary embolism despite an elevated D- dimer. Pulmonary embolism is unlikely. Her CT scan of the chest is consistent with inflammation versus fluid with fluid being more likely in light of her elevated BNP and history of congestive heart failure and chronic kidney disease. She has already improved with treatment with her home diuretic regimen as well as supplemental oxygen. She is on vancomycin and Maxipime for presumed healthcare-associated pneumonia. 2. Recommend rechecking basic metabolic panel and diuresing the patient. 3. Oxygen saturation is 98% today on supplemental oxygen at a flow rate of 2 L/minute. This should be weaned as tolerated. 4. There is no evidence of active infection after review of chest imaging and with a procalcitonin of 0.31 and a normal white blood cell count. It should be okay to discontinue antibiotics. 5. She does have pulmonary nodules as noted, and overwhelmingly, they are stable with one that has increased in size. Recommend rechecking the CT scan of the chest in three months to reassess the ground-glass opacities and bilateral consolidation as well as the lung nodules. Consultation Report [address] [place]. [address] NAME: MARCOS PHILLIPS : 39 STATUS : ADM IN PAT#: [id number] AGE: 81 ADM/REG DATE : 01/13/17 MR#: [id number] REPORT SERV DATE: 01/15/17 DICTATED BY: KITTY SALCIDO DATE: 01/15/17 REPORT STATUS : Draft TRANSCRIBED BY: SEBASTIAN DATE: 01/15/17 Thank you very much for this consultation. PS/SEBASTIAN Kitty Salcido M.D. / [id number] CC: Juan Tatum M.D.
--- NOTE | ~2017-01-13 | DS ---
Discharge Summary [address] [place]. [address] NAME: MARCOS ESPINOZA : 39 STATUS : DIS IN PAT#: [id number] AGE: 81 ADM/REG DATE : 01/13/17 MR#: [id number] REPORT SERV DATE: 01/22/17 DICTATED BY: RAJ ABBOTT DATE: 01/20/17 REPORT STATUS : Draft TRANSCRIBED BY: MODL DATE: 01/20/17 ADMISSION DATE: 01/13/2017 DISCHARGE DATE: 01/20/2017 DISCHARGE DIAGNOSES: 1. Acute hypoxemic respiratory failure. 2. Acute on chronic systolic congestive heart failure with moderately decreased left ventricular systolic function with estimated ejection fraction of 35% on echocardiography with mildly enlarged right ventricle and mildly decreased systolic function. 3. Bilateral pulmonary infiltrates on admission thought to be pulmonary edema and not healthcare associated pneumonia. 4. Valvular heart disease with moderate mitral annular calcification and mitral leaflet calcification with mild mitral stenosis and moderate aortic regurgitation. 5. Chronic kidney disease 5. 6. Encephalopathy, dysarthria, and myoclonus associated with an abnormal EEG, resolved with discontinuation of Paxil and institution of Keppra. Possible seizure disorder. 7. Uncontrolled type 2 diabetes with hyperglycemia. 8. Positive troponin with present illness thought to be demand ischemia with history of coronary artery disease, coronary artery bypass grafting, and previous stents. 9. Automatic implantable cardioverter-defibrillator/pacemaker. 10.Peripheral arterial disease. 11.History of renal artery stenosis. 12.Carotid disease. 13.Chronic pain. 14.History of monoclonal gammopathy. 15.Hypothyroid on replacement. 16.Chronic anemia. 17.Hyperlipoproteinemia. 18.Lymphedema. 19.Left groin wound. 20.Bilateral heel wounds (blisters). 21.Gastroesophageal reflux disease with history of Miky. 22.History of gastric ulcer. 23.Gastrointestinal bleeding 10/2016 with upper gastrointestinal endoscopy showing non- severe reflux esophagitis, Emily-Tobar tear, Miky fundoplication, gastritis, gastric ulcer, and duodenitis. 24.Low vitamin D with high PTH. 25.Depression. 26.Diverticulosis. 27.Pulmonary nodules, outpatient CT needed in 3 months. 28.Right frontal meningioma. OPERATIONS AND PROCEDURES: None. PRESENT ILLNESS: This is a 81-year-old white female who was triaged in the emergency room on Discharge Summary [address] [place]. [address] NAME: MARCOS ESPINOZA : 39 STATUS : DIS IN PAT#: [id number] AGE: 81 ADM/REG DATE : 01/13/17 MR#: [id number] REPORT SERV DATE: 01/22/17 DICTATED BY: RAJ ABBOTT DATE: 01/20/17 REPORT STATUS : Draft TRANSCRIBED BY: MODL DATE: 01/20/17 01/13/2017 at 1301 hours with chest pain and shortness of breath. Admission vital signs: Blood pressure 110/33, temp 98.2, pulse 70, respirations 20, O2 sat 84% on room air increased to 94% on 2 L. After evaluation in the emergency room, she was thought to have bilateral pneumonia. She was referred to the Hospitalist Service. She was seen by Dr. Deacon Norwood and admitted as described on admission history and physical examination. Additional significant history included a hospitalization here on 12/31/2016 to 01/05/2017 with sepsis and right upper lobe pneumonia, all in the setting of the above-mentioned comorbidities. The patient had been doing well up until the day of admission when she developed fairly abrupt dyspnea with exertion associated with sharp, stabbing, intermittent left chest pain with radiation to her back. ADDITIONAL HISTORY: Per Dr. Norwood. PHYSICAL EXAMINATION: Per Dr. Norwood. ADMISSION LABORATORY: Per Dr. Norwood. HOSPITAL COURSE: She was admitted by Dr. Norwood with: 1. Healthcare associated pneumonia. 2. Chest pain with elevated troponin noting chronically elevated troponin with a nonischemic EKG in the emergency room. This was all occurring in the setting of the above-mentioned comorbidities. She was admitted to [address] [place] [address]. Cultures were obtained. She was started on broad-spectrum antimicrobial therapy. A CT scan of her chest was ordered. Nephrology consultation was requested. Her hospitalist care was assumed by Dr. Cooney on 01/14/2017 and the undersigned on 01/15/2017 through 01/19/2017. She was seen by Dr. Abby Ventura for the Nephrology Group. He concurred with the above mentioned therapy. Her CT scan ordered on admission was done on the and read as new patchy nodular consolidation in the anterior superior aspect of the right upper lobe with the largest opacity measuring up to 11 x 16 mm. Findings may be infectious or inflammatory. CT followup suggested. There was also patchy consolidation in the medial aspect of the lower lobes of both lungs, left greater than right. There was minimal interval increase in size of posterior right upper lobe pulmonary nodule now measuring 3 mm and a new 3-mm noncalcified nodule in the left upper lobe. There were numerous additional noncalcified pulmonary nodules in both lungs measuring up to 6 x 4 mm in the left upper lobe appearing similar to 09/07/2007. There was interlobular septal thickening with patchy ground-glass opacities in both lungs thought to represent edema versus infectious inflammatory infiltrates. There was a stable large hiatal hernia. There was atherosclerotic vascular Discharge Summary [address] [place]. [address] NAME: MARCOS ESPINOZA : 39 STATUS : DIS IN PAT#: [id number] AGE: 81 ADM/REG DATE : 01/13/17 MR#: [id number] REPORT SERV DATE: 01/22/17 DICTATED BY: RAJ ABBOTT DATE: 01/20/17 REPORT STATUS : Draft TRANSCRIBED BY: SEBASTIAN DATE: 01/20/17 disease in the coronary arteries with findings of previous CABG and ICD. She was noted to be status post cholecystectomy with a nonobstructing stone or vascular calcification of upper pole of right kidney. A CT scan followup in 3 months was suggested. A bedside swallow was done to evaluate for aspiration and she had no overt signs or symptoms of aspiration. A V/Q lung scan was done to evaluate for pulmonary emboli given her recent hospitalization and presentation and this was thought to be low probability for pulmonary embolus. When initially seen by the undersigned, her history was reviewed. She had minimal cough and sputum. A procalcitonin level x2 had been 0.37 and 0.31. Her white count on admission had been 11.6 with subsequent white counts 9.4 and 9. In addition, her urinary antigen screens for Legionella and pneumococcal were negative and blood cultures were no growth. Her presentation did not appear to be a healthcare-associated pneumonia. Pulmonary edema was suspected. An echocardiogram was done with findings as noted. Pulmonary consultation was obtained and she was seen by Dr. Kitty Sanchez. Dr. Sanchez thought that her presentation laboratory including an elevated BNP and imaging was most consistent with congestive heart failure. She recommended discontinuing her antimicrobial therapy and aggressively diuresing. Her diuretic therapy was increased. Her weight fell from a peak of 92.13 kg on 01/14/2017 to 86.26 kg on 01/20/2017. Associated with this, there was an improvement in her dyspnea. Her hypoxemia also resolved, and by 01/20/2017, she had room air sats of 96%. A followup BNP level was 542.9 having been 1301 three days prior. Gratefully, there was no worsening of her CKD 5 with her diuresis with admission creatinine improving from 4.01 to 3.55 at discharge. In addition to the above therapy since she was not a candidate for KAN or ARB therapy, she was started on increasing doses of p.o. nitrates and hydralazine for her heart failure and blood pressure control. Discharge blood pressure was 142/64. As during her previous hospitalization, she required insulin for blood glucose control. She is being followed by Dr. Ramirez in the outpatient setting at [facility]. She had been instructed by her account to discontinue her insulin. On 01/17/2017, she had the abrupt onset of dysarthria, myoclonus, and encephalopathy. An extensive Neurology evaluation was undertaken. She was seen by Dr. Mery Tejada. A CT scan of the brain without contrast was done, which showed stable atrophy, evidence for Discharge Summary [address] [address] NAME: MARCOS ESPINOZA : 39 STATUS : DIS IN PAT#: [id number] AGE: 81 ADM/REG DATE : 01/13/17 MR#: [id number] REPORT SERV DATE: 01/22/17 DICTATED BY: RAJ ABBOTT DATE: 01/20/17 REPORT STATUS : Draft TRANSCRIBED BY: MODL DATE: 01/20/17 some mild deep white matter ischemic changes and several small punctate calcification in the laura of uncertain significance. A repeat CT brain without contrast on the did not show any new acute abnormalities except for the possibility of a small right frontal meningioma. Carotid imaging demonstrated category 2 right, category 1 left with an abnormal right vertebral resistive pattern suggesting more superior stenosis beyond and superior to the origin of the right vertebral. An EEG was performed and read by Dr. Tejada. It showed generalized slowing, rhythmic activity in the left temporal lobe, periods of suppressed brain activity most predominantly seen in bilateral parietal area, although at times generalized, and generalized spike and wave discharges consistent with myoclonus. Underlying seizure activity was thought to be possible. Her Paxil was discontinued. She was started on low-dose Keppra. During the course of her hospitalization, all of these symptoms resolved. On 01/20/2017, she wanted to go home. She was not dyspneic. She had no cough. She had no nausea. She was not confused. Her speech was normal and she had no myoclonus. Her room air sat was 96 and her laboratory values were as noted. On exam, she had clear lung piper. No gallop. Soft abdomen. Trace edema (lymphedema), and a paced rhythm. At this point of her hospitalization, it was felt that she had achieved a level of improvement and stability where she could be safely discharged home. Home health care will be obtained for medication reconciliation tomorrow, home evaluation, PT eval and treatment, and congestive heart failure and diabetes monitoring. It was recommended that she see her primary care physician, Dr. Snow this week. She is to see Dr. Wright, Nephrology Group in approximately two weeks, the Neurology Group in three to four weeks, and Dr. Diez and Dr. Ramirez as scheduled. She previously has been asked to restrict her fluid intake to 1500 mL and to either no added sodium diet. DISCHARGE MEDICATIONS: Pending outpatient followup: Aspirin 81 mg daily; Bumex 2 mg twice daily; Coreg 12.5 mg twice daily; vitamin D 4000 units daily; iron 325 mg daily; isosorbide dinitrate 20 mg every 8 hours; hydralazine 37.5 mg every 8 hours; Keppra 250 mg twice daily; levothyroxine 75 mcg daily; nitroglycerin patch 0.6 mg/hour one at bedtime; Protonix 40 mg daily; Lidoderm patch as needed for pain; Roxicodone 15 every 6 hours as needed; Novolin 70/30, 15 units before breakfast and supper to be adjusted based on blood sugars. Discharge Summary [place] [id number] [place]. [address] NAME: MARCOS ESPINOZA : 39 STATUS : DIS IN PAT#: [id number] AGE: 81 ADM/REG DATE : 01/13/17 MR#: [id number] REPORT SERV DATE: 01/22/17 DICTATED BY: RAJ ABBOTT DATE: 01/20/17 REPORT STATUS : Draft TRANSCRIBED BY: SEBASTIAN DATE: 01/20/17 She is not to use Paxil, Aldactone, or any antibiotics she has at home at this time. She is fragilely stable and high risk for readmission. She will need a followup CT scan of her chest in 3 months. Discharge time greater than 30 minutes. DICTATED BY: Raj Abbott M.D. DD/SEBASTIAN Raj Abbott M.D. / [id number] CC: Juan Tatum M.D. Donald Franklin Jr, M.D.
[2017-01-13 14:08] LABS: BASOPHILS 0.3 %; BASOPHILS ABSOLUTE 0.04 10/3/uL (0.0-0.16); EOSINOPHILS 5.8 %; EOSINOPHILS ABSOLUTE 0.67 10/3/uL (0.0-0.53); HEMATOCRIT 29.5 % (36.0-48.0); HEMOGLOBIN 9.4 g/dL (12.0-16.0); IMMATURE GRANULOCYTES 0.4 %; IMMATURE GRANULOCYTES ABSOLUTE 0.05 10/3/uL (0.0-0.11); LYMPHOCYTES 14.5 %; LYMPHOCYTES ABSOLUTE 1.68 10/3/uL (0.67-4.30); MANUAL DIFF NO %; MEAN CORPUS HGB CONC 31.9 g/dL (32.0-36.0); MEAN CORPUSCULAR HEMOGLOB 33.2 pg (26.0-34.0); MEAN CORPUSCULAR VOLUME 104.2 fL (80-100); MEAN PLATELET VOLUME 9.4 fL (9.2-13.0); MONOCYTES 8.5 %; MONOCYTES ABSOLUTE 0.99 10/3/uL (0.21-1.20); NEUTROPHILS 70.5 %; NEUTROPHILS ABSOLUTE 8.15 10/3/uL (2.02-8.40); PLATELET COUNT 245 10/3/uL (150-400); RBC DISTRIBUTION WIDTH 15.5 % (12.0-16.0); RED CELL COUNT 2.83 10/6/uL (4.0-5.6); WHITE BLOOD CELLS 11.6 10/3/uL (4.5-10.5)
[2017-01-13 14:17] LABS: INTERNATIONAL NORMAL RATI 1.1 UNITS (-); PARTIAL THROMBO TIME 31.2 SEC (22.5-37.2); PROTIME (NOT ORD) 14.4 SEC (12.0-14.5)
[2017-01-13 14:25] LABS: CALCIUM, SERUM 9.2 MG/DL (8.5-10.4); CHLORIDE, SERUM 99 MMOL/L (96-112); CO2 (CARBON DIOXIDE) 27 MMOL/L (24-34)
[2017-01-13 14:26] LABS: BUN (BLOOD UREA NITROGEN) 68 MG/DL (6-23); CHEST PAIN PROFILE TAT 0 Hrs 22 Mins; CREATININE 4.01 MG/DL (0.55-1.02); D-DIMER QUANTITATIVE 4.42 ug/mLFEU (< 0.50); GFR AFRICAN AMERICAN 12 ML/MIN (>=60); GFR NON AFRICAN AMERICAN 10 ML/MIN (>=60); GLUCOSE, SERUM 477 MG/DL (60-99); POTASSIUM, SERUM 5.3 MMOL/L (3.5-5.3); SODIUM, SERUM 135 MMOL/L (135-148); TROPONIN I 0.12 NG/ML (<0.05)
[~2017-01-13 15:05] MED LIST changes: +CEFT5 PO; +LIDODERM TOP; +NOVOLOG SC; +PAX10 PO; +ROXICODONE15 MG PO
[2017-01-14 07:17] LABS: BASOPHILS 0.3 %; BASOPHILS ABSOLUTE 0.03 10/3/uL (0.0-0.16); EOSINOPHILS 9.2 %; EOSINOPHILS ABSOLUTE 0.86 10/3/uL (0.0-0.53); HEMATOCRIT 28.4 % (36.0-48.0); IMMATURE GRANULOCYTES 0.4 %; IMMATURE GRANULOCYTES ABSOLUTE 0.04 10/3/uL (0.0-0.11); LYMPHOCYTES 23.4 %; MEAN CORPUS HGB CONC 31.7 g/dL (32.0-36.0); MEAN CORPUSCULAR HEMOGLOB 32.8 pg (26.0-34.0); MEAN CORPUSCULAR VOLUME 103.6 fL (80-100); MEAN PLATELET VOLUME 9.6 fL (9.2-13.0); MONOCYTES 9.6 %; NEUTROPHILS 57.1 %; NEUTROPHILS ABSOLUTE 5.36 10/3/uL (2.02-8.40); PLATELET COUNT 223 10/3/uL (150-400); RBC DISTRIBUTION WIDTH 15.5 % (12.0-16.0); RED CELL COUNT 2.74 10/6/uL (4.0-5.6); WHITE BLOOD CELLS 9.4 10/3/uL (4.5-10.5)
[2017-01-14 07:22] LABS: ALBUMIN 2.4 G/DL (3.5-5.0); BUN (BLOOD UREA NITROGEN) 66 MG/DL (6-23); CALCIUM, SERUM 8.7 MG/DL (8.5-10.4); CHLORIDE, SERUM 103 MMOL/L (96-112); CO2 (CARBON DIOXIDE) 25 MMOL/L (24-34); CREATININE 3.82 MG/DL (0.55-1.02); GFR AFRICAN AMERICAN 12 ML/MIN (>=60); GFR NON AFRICAN AMERICAN 11 ML/MIN (>=60); MANUAL DIFF NO %; SODIUM, SERUM 137 MMOL/L (135-148)
[2017-01-14 07:23] LABS: CK-MB 2.4 NG/ML; CPK 43 U/L (0-200); GLUCOSE, SERUM 317 MG/DL (60-99)
[2017-01-14 14:29] LABS: BE (BASE EXCESS) 0.1 MEQ/L (0 +/- 2.5); CARBOXYHEMOGLOBIN 1.5 % (0-3); HCO3 (ACTUAL BICARBONATE) 25.1 MEQ/L (23-27); INSTRUMENT SERIAL # 8087; METHEMOGLOBIN 0.3 % (0-3); PCO2 (CO2 TENSION) 42 MMHG (35-45); PO2 (O2 TENSION) 61 MMHG (79-93); pH 7.39 (7.37-7.43)
[2017-01-14 14:30] LABS: ALLENS TEST Pos; HEMOBLOGIN CONTENT 10.3 G/DL (12-16); O2 CONTENT 12.7 VOL% (18-24); OPERATOR ID 14335; SAMPLE Arterial
[2017-01-14] MEDS ORDERED: INSNOV7030 SC (15:24)
[2017-01-14 17:25] LABS: WBC (NOT ORDERED) (RFLEX) 0 (0-5)
[2017-01-14 18:25] LABS: ASCORBIC ACID (UR NOT ORDER) NEG (NEG); BILIRUBIN, URINE NEGATIVE (NEG); KETONE, URINE NEGATIVE (NEG); LEUKOCYTE ESTERASE(NOT OR NEG (NEG)
[2017-01-14 18:43] LABS: CREATININE, URINE 67.7 MG/DL
[2017-01-15 07:00] LABS: BASOPHILS 0.3 %; BASOPHILS ABSOLUTE 0.03 10/3/uL (0.0-0.16); EOSINOPHILS 8.9 %; HEMATOCRIT 27.6 % (36.0-48.0); HEMOGLOBIN 8.8 g/dL (12.0-16.0); IMMATURE GRANULOCYTES 0.3 %; IMMATURE GRANULOCYTES ABSOLUTE 0.03 10/3/uL (0.0-0.11); LYMPHOCYTES 20.6 %; LYMPHOCYTES ABSOLUTE 1.86 10/3/uL (0.67-4.30); MEAN CORPUS HGB CONC 31.9 g/dL (32.0-36.0); MEAN CORPUSCULAR HEMOGLOB 33.5 pg (26.0-34.0); MEAN CORPUSCULAR VOLUME 104.9 fL (80-100); MEAN PLATELET VOLUME 9.3 fL (9.2-13.0); MONOCYTES 11.1 %; NEUTROPHILS 58.8 %; NEUTROPHILS ABSOLUTE 5.31 10/3/uL (2.02-8.40); PLATELET COUNT 199 10/3/uL (150-400); RBC DISTRIBUTION WIDTH 15.4 % (12.0-16.0); RED CELL COUNT 2.63 10/6/uL (4.0-5.6)
[2017-01-15 07:03] LABS: MANUAL DIFF NO %
[2017-01-15 07:14] LABS: CALCIUM, SERUM 8.7 MG/DL (8.5-10.4); CHLORIDE, SERUM 103 MMOL/L (96-112); CO2 (CARBON DIOXIDE) 25 MMOL/L (24-34); GFR AFRICAN AMERICAN 14 ML/MIN (>=60); GFR NON AFRICAN AMERICAN 12 ML/MIN (>=60); POTASSIUM, SERUM 4.1 MMOL/L (3.5-5.3); SODIUM, SERUM 136 MMOL/L (135-148)
[2017-01-15 07:15] LABS: BUN (BLOOD UREA NITROGEN) 61 MG/DL (6-23); GLUCOSE, SERUM 164 MG/DL (60-99)
[2017-01-15 10:29] LABS: PROCALCITONIN 0.31 ng/mL (<0.5)
[2017-01-16 04:59] LABS: BASOPHILS 0.3 %; BASOPHILS ABSOLUTE 0.03 10/3/uL (0.0-0.16); EOSINOPHILS 10.2 %; EOSINOPHILS ABSOLUTE 0.88 10/3/uL (0.0-0.53); HEMATOCRIT 27.4 % (36.0-48.0); HEMOGLOBIN 8.8 g/dL (12.0-16.0); IMMATURE GRANULOCYTES 0.5 %; IMMATURE GRANULOCYTES ABSOLUTE 0.04 10/3/uL (0.0-0.11); LYMPHOCYTES 22.9 %; LYMPHOCYTES ABSOLUTE 1.97 10/3/uL (0.67-4.30); MEAN CORPUS HGB CONC 32.1 g/dL (32.0-36.0); MEAN CORPUSCULAR HEMOGLOB 33.5 pg (26.0-34.0); MEAN CORPUSCULAR VOLUME 104.2 fL (80-100); MEAN PLATELET VOLUME 9.4 fL (9.2-13.0); MONOCYTES 11.6 %; NEUTROPHILS 54.5 %; NEUTROPHILS ABSOLUTE 4.67 10/3/uL (2.02-8.40); PLATELET COUNT 219 10/3/uL (150-400); RBC DISTRIBUTION WIDTH 15.5 % (12.0-16.0); RED CELL COUNT 2.63 10/6/uL (4.0-5.6); WHITE BLOOD CELLS 8.6 10/3/uL (4.5-10.5)
[2017-01-16 05:04] LABS: MANUAL DIFF NO %
[2017-01-16 05:08] LABS: ALBUMIN 2.2 G/DL (3.5-5.0); BUN (BLOOD UREA NITROGEN) 61 MG/DL (6-23); CALCIUM, SERUM 8.9 MG/DL (8.5-10.4); CHLORIDE, SERUM 106 MMOL/L (96-112); CO2 (CARBON DIOXIDE) 24 MMOL/L (24-34); CREATININE 3.46 MG/DL (0.55-1.02); GFR AFRICAN AMERICAN 14 ML/MIN (>=60); GFR NON AFRICAN AMERICAN 12 ML/MIN (>=60); PHOSPHORUS, SERUM 3.6 MG/DL (2.5-4.5); POTASSIUM, SERUM 4.3 MMOL/L (3.5-5.3); SODIUM, SERUM 137 MMOL/L (135-148)
[2017-01-16 05:09] LABS: GLUCOSE, SERUM 96 MG/DL (60-99)
[2017-01-16 15:01] LABS: C-REACTIVE PROTEIN 66.6 MG/L (<8.0)
[2017-01-17 06:12] LABS: BASOPHILS 0.7 %; BASOPHILS ABSOLUTE 0.05 10/3/uL (0.0-0.16); EOSINOPHILS 9.9 %; EOSINOPHILS ABSOLUTE 0.74 10/3/uL (0.0-0.53); HEMATOCRIT 27.6 % (36.0-48.0); HEMOGLOBIN 8.7 g/dL (12.0-16.0); IMMATURE GRANULOCYTES 0.3 %; IMMATURE GRANULOCYTES ABSOLUTE 0.02 10/3/uL (0.0-0.11); LYMPHOCYTES 24.5 %; LYMPHOCYTES ABSOLUTE 1.83 10/3/uL (0.67-4.30); MEAN CORPUS HGB CONC 31.5 g/dL (32.0-36.0); MEAN CORPUSCULAR HEMOGLOB 33.2 pg (26.0-34.0); MEAN CORPUSCULAR VOLUME 105.3 fL (80-100); MEAN PLATELET VOLUME 9.1 fL (9.2-13.0); MONOCYTES 12.7 %; MONOCYTES ABSOLUTE 0.95 10/3/uL (0.21-1.20); NEUTROPHILS 51.9 %; NEUTROPHILS ABSOLUTE 3.88 10/3/uL (2.02-8.40); PLATELET COUNT 220 10/3/uL (150-400); RBC DISTRIBUTION WIDTH 15.6 % (12.0-16.0); RED CELL COUNT 2.62 10/6/uL (4.0-5.6); WHITE BLOOD CELLS 7.5 10/3/uL (4.5-10.5)
[2017-01-17 06:13] LABS: MANUAL DIFF NO %
[2017-01-17 06:19] LABS: ALBUMIN 2.2 G/DL (3.5-5.0); BUN (BLOOD UREA NITROGEN) 59 MG/DL (6-23); CALCIUM, SERUM 8.9 MG/DL (8.5-10.4); CHLORIDE, SERUM 105 MMOL/L (96-112); CO2 (CARBON DIOXIDE) 28 MMOL/L (24-34); CREATININE 3.61 MG/DL (0.55-1.02); GFR AFRICAN AMERICAN 13 ML/MIN (>=60); GFR NON AFRICAN AMERICAN 11 ML/MIN (>=60); GLUCOSE, SERUM 104 MG/DL (60-99); PHOSPHORUS, SERUM 3.4 MG/DL (2.5-4.5); POTASSIUM, SERUM 4.5 MMOL/L (3.5-5.3); SODIUM, SERUM 140 MMOL/L (135-148)
[2017-01-17 09:27] LABS: C-REACTIVE PROTEIN 54.2 MG/L (<8.0); SGOT(AST) 17 U/L (5-40); SGPT(ALT) 8 U/L (5-65); TOTAL BILIRUBIN 0.3 MG/DL (0-1.2); TOTAL PROTEIN 7.2 G/DL (6.0-8.5)
[2017-01-17 09:28] LABS: ALKALINE PHOSPHATASE 66 U/L (45-117); DIRECT BILIRUBIN < 0.1 MG/DL (0.0-0.4); INDIRECT BILIRUBIN(NOT ORDER) 0.2 MG/DL (0.1-0.9)
[2017-01-17 09:49] LABS: ALLENS TEST Pos; CARBOXYHEMOGLOBIN 0.7 % (0-3); DEVICE NC; HCO3 (ACTUAL BICARBONATE) 25.8 MEQ/L (23-27); HEMOBLOGIN CONTENT 9.9 G/DL (12-16); INSTRUMENT SERIAL # 8083; METHEMOGLOBIN 0.2 % (0-3); O2 CONTENT 13.3 VOL% (18-24); OPERATOR ID 35798; PCO2 (CO2 TENSION) 42 MMHG (35-45); PO2 (O2 TENSION) 81 MMHG (79-93); SAMPLE Arterial; pH 7.41 (7.37-7.43)
[2017-01-17 10:33] LABS: C-REACTIVE PROTEIN 54.7 MG/L (<8.0); FREE T4 1.28 NG/DL (0.76-1.46); ULTRASENSITIVE TSH 3.16 MCIU/ML (0.358-3.740)
[2017-01-17 10:34] LABS: FOLATE 16.9 NG/ML (>5.2)
[2017-01-17 12:18] LABS: PROCALCITONIN 0.29 ng/mL (<0.5)
[2017-01-18 08:52] LABS: ALBUMIN 2.2 G/DL (3.5-5.0); BUN (BLOOD UREA NITROGEN) 57 MG/DL (6-23); CALCIUM, SERUM 8.5 MG/DL (8.5-10.4); CHLORIDE, SERUM 105 MMOL/L (96-112); CHOL/HDL RATIO(NOT ORDER) 6.5 (0-5); CHOLESTEROL 170 MG/DL (< 200); CO2 (CARBON DIOXIDE) 28 MMOL/L (24-34); CREATININE 3.59 MG/DL (0.55-1.02); GFR AFRICAN AMERICAN 13 ML/MIN (>=60); GFR NON AFRICAN AMERICAN 11 ML/MIN (>=60); LDL CHOLESTEROL 121 MG/DL (< 130); NON-HDL CHOLESTEROL 144 MG/DL (< 160); PHOSPHORUS, SERUM 3.9 MG/DL (2.5-4.5); POTASSIUM, SERUM 4.5 MMOL/L (3.5-5.3); SODIUM, SERUM 142 MMOL/L (135-148); TRIGLYCERIDE 116 MG/DL (< 150)
[2017-01-18 08:53] LABS: GLUCOSE, SERUM 146 MG/DL (60-99); HDL CHOLESTEROL 26 MG/DL (> 49)
[2017-01-18 14:58] LABS: RETICULOCYTE COUNT 4.1 % (0.5-2.5); RETICULOCYTE COUNT ABSOLUTE 112.6 10/3/uL (20.2-119.8)
[2017-01-19 07:15] LABS: BASOPHILS 0.7 %; BASOPHILS ABSOLUTE 0.05 10/3/uL (0.0-0.16); EOSINOPHILS 9.9 %; EOSINOPHILS ABSOLUTE 0.74 10/3/uL (0.0-0.53); HEMOGLOBIN 9.6 g/dL (12.0-16.0); IMMATURE GRANULOCYTES 0.3 %; IMMATURE GRANULOCYTES ABSOLUTE 0.02 10/3/uL (0.0-0.11); LYMPHOCYTES 25.7 %; LYMPHOCYTES ABSOLUTE 1.93 10/3/uL (0.67-4.30); MEAN CORPUS HGB CONC 31.5 g/dL (32.0-36.0); MEAN CORPUSCULAR HEMOGLOB 32.9 pg (26.0-34.0); MEAN CORPUSCULAR VOLUME 104.5 fL (80-100); MEAN PLATELET VOLUME 9.2 fL (9.2-13.0); MONOCYTES 8.5 %; MONOCYTES ABSOLUTE 0.64 10/3/uL (0.21-1.20); NEUTROPHILS 54.9 %; NEUTROPHILS ABSOLUTE 4.13 10/3/uL (2.02-8.40); PLATELET COUNT 213 10/3/uL (150-400); RBC DISTRIBUTION WIDTH 15.4 % (12.0-16.0); RED CELL COUNT 2.92 10/6/uL (4.0-5.6); WHITE BLOOD CELLS 7.5 10/3/uL (4.5-10.5)
[2017-01-19 07:17] LABS: HEMATOCRIT 30.5 % (36.0-48.0); MANUAL DIFF NO %
[2017-01-19 07:36] LABS: ALBUMIN 2.3 G/DL (3.5-5.0); CALCIUM, SERUM 8.8 MG/DL (8.5-10.4); CHLORIDE, SERUM 103 MMOL/L (96-112); CO2 (CARBON DIOXIDE) 28 MMOL/L (24-34); GFR AFRICAN AMERICAN 14 ML/MIN (>=60); GFR NON AFRICAN AMERICAN 12 ML/MIN (>=60); GLUCOSE, SERUM 140 MG/DL (60-99); PHOSPHORUS, SERUM 3.4 MG/DL (2.5-4.5); POTASSIUM, SERUM 4.2 MMOL/L (3.5-5.3); SODIUM, SERUM 138 MMOL/L (135-148)
[2017-01-19 07:37] LABS: BUN (BLOOD UREA NITROGEN) 52 MG/DL (6-23)
[2017-01-20 05:54] LABS: BASOPHILS 1.1 %; BASOPHILS ABSOLUTE 0.08 10/3/uL (0.0-0.16); EOSINOPHILS 8.2 %; HEMATOCRIT 29.9 % (36.0-48.0); HEMOGLOBIN 9.5 g/dL (12.0-16.0); IMMATURE GRANULOCYTES 0.3 %; IMMATURE GRANULOCYTES ABSOLUTE 0.02 10/3/uL (0.0-0.11); LYMPHOCYTES 30.5 %; LYMPHOCYTES ABSOLUTE 2.24 10/3/uL (0.67-4.30); MEAN CORPUS HGB CONC 31.8 g/dL (32.0-36.0); MEAN CORPUSCULAR HEMOGLOB 33.2 pg (26.0-34.0); MEAN CORPUSCULAR VOLUME 104.5 fL (80-100); MEAN PLATELET VOLUME 9.1 fL (9.2-13.0); MONOCYTES ABSOLUTE 0.81 10/3/uL (0.21-1.20); NEUTROPHILS 48.9 %; NEUTROPHILS ABSOLUTE 3.59 10/3/uL (2.02-8.40); PLATELET COUNT 212 10/3/uL (150-400); RBC DISTRIBUTION WIDTH 15.4 % (12.0-16.0); RED CELL COUNT 2.86 10/6/uL (4.0-5.6); WHITE BLOOD CELLS 7.3 10/3/uL (4.5-10.5)
[2017-01-20 05:58] LABS: MANUAL DIFF NO %
[2017-01-20 06:06] LABS: ALBUMIN 2.4 G/DL (3.5-5.0); BUN (BLOOD UREA NITROGEN) 53 MG/DL (6-23); CALCIUM, SERUM 8.9 MG/DL (8.5-10.4); CHLORIDE, SERUM 102 MMOL/L (96-112); CO2 (CARBON DIOXIDE) 29 MMOL/L (24-34); CREATININE 3.55 MG/DL (0.55-1.02); GFR AFRICAN AMERICAN 13 ML/MIN (>=60); GFR NON AFRICAN AMERICAN 12 ML/MIN (>=60); GLUCOSE, SERUM 160 MG/DL (60-99); PHOSPHORUS, SERUM 3.1 MG/DL (2.5-4.5); POTASSIUM, SERUM 4.2 MMOL/L (3.5-5.3); SODIUM, SERUM 137 MMOL/L (135-148)
[2017-01-20] MEDS ORDERED: KEPPRA250 PO (17:21)
[2017-01-20] MEDS ORDERED: ISORDIL20 (17:21)
[2017-01-20] MEDS ORDERED: APRES25 PO (17:22)
[2017-02-21] MEDS ORDERED: *UNABLE1 (20:33)
[2017-02-21] MEDS ORDERED: ROXICODONE15 MG PO (20:41)
[2017-02-21] MEDS ORDERED: LEVOTHYROXIN75 MCG PO (20:42)
[2017-02-21] MEDS ORDERED: COREG6 PO (20:42)
[2017-02-21] MEDS ORDERED: NITROII30C TOP (20:42)
[2017-02-21] MEDS ORDERED: NOVOPENMIX SC (20:42)
[2017-02-21] MEDS ORDERED: BUM2 PO ×2 (20:42→20:43)
[2017-02-21] MEDS ORDERED: KEPPRA250 PO (20:43)
[2017-02-21] MEDS ORDERED: APRES25 PO (20:43)
[2017-02-21] MEDS ORDERED: ISORDIL20 PO (20:43)
[2017-02-21] MEDS ORDERED: MULTIVIT/MIN PO (20:44)
[2017-02-21] MEDS ORDERED: FERROUS SULF325 M1 PO (20:44)
[2017-02-21] MEDS ORDERED: VITAMIN D2000 UNIT PO (20:44)
[2017-02-21] MEDS ORDERED: HALF81 PO (20:44)
[2017-03-20] MEDS ORDERED: PROTONIX PO (10:37)
[2017-03-20] MEDS ORDERED: KDUR10 PO (10:37)
[2017-04-03] MEDS ORDERED: NITROSTAT0.4 MG SL (20:14)
[2017-04-03] MEDS ORDERED: ATV1 PO (20:15)
[2017-04-03] MEDS ORDERED: LIDODERM TOP (20:15)
[2017-05-03] MEDS ORDERED: PRIN2.5 PO (11:51)
[2017-05-03] MEDS ORDERED: [UNRECOGNIZED DRUG - CODE] TOP (11:53)
[2017-05-03] MEDS ORDERED: RENA-VITE PO (11:55)
[2017-05-03] MEDS ORDERED: T PO (11:56)
[2017-05-03] MEDS ORDERED: ZOFRAN ODT4 MG PO (11:57)
[2017-05-03] MEDS ORDERED: OXYIR5 MG PO (12:00)
[2017-05-03] MEDS ORDERED: [UNRECOGNIZED DRUG - CODE] T (12:04)
[2017-05-03] MEDS ORDERED: INSTA GLUCOSE PO (12:10)
== END 2017-01-20 18:00 | disposition home health service (06) | DRG 291 ==
LOC: ER 15:05 → 6NO 17:46
PROVIDERS: Internal Medicine; Internal Medicine Nephrology; Nurse Practitioner Family; Psychiatry & Neurology Neurology
DX: I13.2 Hypertensive heart and chronic kidney disease with heart failure and with stage 5 chronic kidney disease, or end stage renal disease (principal); J96.01 Acute respiratory failure with hypoxia; G92 Toxic encephalopathy; N18.5 Chronic kidney disease, stage 5; E11.22 Type 2 diabetes mellitus with diabetic chronic kidney disease; I27.2 Other secondary pulmonary hypertension; I50.43 Acute on chronic combined systolic (congestive) and diastolic (congestive) heart failure; I24.8 Other forms of acute ischemic heart disease; I08.0 Rheumatic disorders of both mitral and aortic valves; G40.909 Epilepsy, unspecified, not intractable, without status epilepticus; I73.9 Peripheral vascular disease, unspecified; I25.10 Atherosclerotic heart disease of native coronary artery without angina pectoris; I70.1 Atherosclerosis of renal artery; E78.5 Hyperlipidemia, unspecified; G89.29 Other chronic pain; D47.2 Monoclonal gammopathy; E11.65 Type 2 diabetes mellitus with hyperglycemia; K21.9 Gastro-esophageal reflux disease without esophagitis; M54.5 Low back pain; F41.9 Anxiety disorder, unspecified; D63.1 Anemia in chronic kidney disease; Z95.810 Presence of automatic (implantable) cardiac defibrillator; Z95.1 Presence of aortocoronary bypass graft; Z90.49 Acquired absence of other specified parts of digestive tract; Z87.01 Personal history of pneumonia (recurrent); Z79.4 Long term (current) use of insulin; Z87.440 Personal history of urinary (tract) infections; Z88.2 Allergy status to sulfonamides; Z88.5 Allergy status to narcotic agent; Z82.49 Family history of ischemic heart disease and other diseases of the circulatory system
CPT/HCPCS: 36600; 70450; 71010; 71250; 78582; 80048; 80061; 80069; 80076; 80202; 81001; 82140; 82550; 82553; 82570; 82607; 82746; 82805; 82962; 83036; 83605; 83615; 83735; 83880; 83935; 84145; 84300; 84439; 84443; 84484; 85025; 85045; 85379; 85610; 85652; 85730; 86140; 87040; 87449; 92610-GN; 93005; 93880; 94640; 95816; 96365; 96367; 96375; 99285; A9270-GY; A9540; A9567; C8929; G8996-CI-GN; G8997-CI-GN; G8998-CI-GN; J0456; J0610; J0692; J1953; J2405; J3370; Q9957